=== PATIENT | male | born 1980 | race Caucasian/White ===

== ENCOUNTER 2016-07-12 16:57 | Inpatient (IN) | payer OTHER ==
[2016-07-12 18:49] VITALS: BMI 27.1
--- NOTE | 2016-07-12 21:34 | HP ---
CIWA Score - CIWA Score Nausea/Vomitin Muscle Tremors: 1-None Visible, but [place] Anxiety: 6 Agitation: 6 Paroxysmal Sweats: 4-Forehead w/Sweat Beads Orientation: 0-Oriented Tacttile Disturbances: 0-None Auditory Disturbances: 0-None Visual Disturbances: 0-None Headache: 4-Moderately Severe CIWA-Ar Total Score: 23 Admission ROS BHS - HPI Chief Complaint: WITHDRAWAL SX'S Allergies/Adverse Reactions: Allergies Allergy/AdvReac Type Severity Reaction Status Date / Time No Known Allergies Allergy Verified 09/30/15 11:50 History of Present Illness: 36 Y.O. MALE WITH ALCOHOLISM AND OPIOID/ COCAINE DEPENDENCE HERE FOR DETOX TXMENT. CL[facility] [address] [facility]IC[facility] TODAY. HE IS KNOWN TO [facility] LAST HERE 02/2016 . Exam Limitations: No Limitations - Ebola screening Have you traveled outside of the country in the last 21 days: No Have you had contact with anyone from an Ebola affected area: No Have you been sick,other than usual withdrawal symptoms: No Do you have a fever: No - Review of Systems Constitutional: Loss of Appetite, Night Sweats EENT: reports: No Symptoms Reported Respiratory: reports: No Symptoms reported Cardiac: reports: No Symptoms Reported GI: reports: Nausea, Poor Appetite, Vomiting : reports: No Symptoms Reported Musculoskeletal: reports: No Symptoms Reported Integumentary: reports: No Symptoms Reported Neuro: reports: Headache Endocrine: reports: No Symptoms Reported Hematology: reports: No Symptoms Reported Psychiatric: reports: Anxious, Depressed Other Systems: Reviewed and Negative Patient History - Patient Medical History Hx Anemia: No Hx Asthma: No Hx Chronic Obstructive Pulmonary Disease (COPD): No Hx Cancer: No Hx Cardiac Disorders: No Hx Congestive Heart Failure: No Hx Hypertension: No Hx Hypercholesterolemia: No Hx Pacemaker: No HX Cerebrovascular Accident: No Hx Seizures: No Hx Dementia: No Hx Diabetes: No Hx Gastrointestinal Disorders: No Hx Liver Disease: Yes Hx Genitourinary Disorders: No Hx Sexually Transmitted Disorders: No Hx Renal Disease (ESRD): No Hx Thyroid Disease: No Hx Human Immunodeficiency Virus (HIV): No Hx Hepatitis C: Yes (TREATED) Hx Depression: Yes (CURRENTLY ON MEDS) Hx Suicide Attempt: No (DENIES) Hx Bipolar Disorder: Yes (EFFEXOR) Hx Schizophrenia: No Other Medical History: DENIES - Patient Surgical History Past Surgical History: No Hx Neurologic Surgery: No Hx Cataract Extraction: No Hx Cardiac Surgery: No Hx Lung Surgery: No Hx Breast Surgery: No Hx Breast Biopsy: No Hx Abdominal Surgery: No Hx Appendectomy: No Hx Cholecystectomy: No Hx Genitourinary Surgery: No Hx Section: No Hx Orthopedic Surgery: No Anesthesia Reaction: No - PPD History Previous Implant?: Yes Documented Results: Negative w/proof Date: 08/22/15 Results: 0 mm PPD to be Administered?: No - Smoking Cessation Smoking history: Current every day smoker Have you smoked in the past 12 months: Yes Aproximately how many cigarettes per day: 20 Cigars Per Day: 0 Hx Chewing Tobacco Use: No Initiated information on smoking cessation: Yes 'Breaking Loose' booklet given: 07/12/16 - Substance & Tx. History Hx Alcohol Use: Yes Hx Substance Use: Yes Substance Use Type: Alcohol, Cocaine, Heroin Hx Substance Use Treatment: Yes ([facility]) - Substances Abused BEER Route: Oral Frequency: Daily Amount used: 2- 6 PACKS Age of first use: 27 Date of Last Use: 07/12/16 COAINE Route: Injection Frequency: Daily Amount used: 8 BAGS Age of first use: 17 Date of Last Use: 07/12/16 HEROIN Route: Injection Frequency: Daily Amount used: 8 BAGS Age of first use: 17 Date of Last Use: 07/12/16 Family Disease History - Family Disease History Family Disease History: Diabetes: Father (ALCOHOLIC), Mother, Heart Disease: Father, Other: Father Admission Physical Exam S - Vital Signs Vital Signs: Vital Signs - 24 hr 07/12/16 18:46 Temperature 97.6 F Pulse Rate 68 Respiratory 16 Rate Blood Pressure 120/81 - Physical General Appearance: Yes: Appropriately Dressed, Mild Distress, Intoxicated, Sweating HEENTM: Yes: Normocephalic, MISAEL, Pharynx Normal Respiratory: Yes: Chest Non-Tender, Lungs Clear, Normal Breath Sounds, No Respiratory Distress, No Accessory Muscle Use Neck: Yes: No masses,lesions,Nodules, Supple, Trachea in good position Breast: Yes: Breast Exam Deferred Cardiology: Yes: Regular Rhythm, Regular Rate, S1, S2 Abdominal: Yes: Normal Bowel Sounds, Non Tender, Flat Genitourinary: Yes: Within Normal Limits Back: Yes: Normal Inspection Musculoskeletal: Yes: full range of Motion, Gait Steady Extremities: Yes: Normal Capillary Refill, Normal Range of Motion, Non-Tender Neurological: Yes: investigation lieutenant II-XII NML intact, Fully Oriented, Alert, Motor Strength 5/5 Integumentary: Yes: Normal Color, Warm, Diaphoresis, Moist, Track Patterson Lymphatic: Yes: Within Normal Limits - Diagnostic (1) Alcohol dependence with uncomplicated withdrawal Current Visit: Yes Status: Acute (2) Opioid dependence on agonist therapy Current Visit: Yes Status: Acute (3) Cocaine dependence with withdrawal Current Visit: Yes Status: Chronic (4) Nicotine dependence Current Visit: Yes Status: Chronic Qualifiers: Nicotine product type: cigarettes Substance use status: uncomplicated Qualified Code(s): F17.210 - Nicotine dependence, cigarettes, uncomplicated Cleared for Admission [facility] - Detox or Rehab [facility] Level of Care: Medically Managed Detox Regimen/Protocol: Librium [facility] Breath Alcohol Content Breath Alcohol Content: 0.124 Urine Drug Screen - Results Urine Drug Screen Results: AV-Cocaine, OPI-Opiates, MTD-Methadone, TCA- Tricyclic Antidepress, OXY-Oxycodone
[2016-07-12] MEDS ORDERED: LOPERAMIDE HCL 2 MG CAPSULE PO PRN (21:49)
[2016-07-12] MEDS ORDERED: hydrOXYzine PAMOATE 50 MG CAPSULE (FP) PO PRN (21:49)
[2016-07-12] MEDS ORDERED: NICOTINE POLACRILEX 2 MG GUM BC PRN (21:49)
[2016-07-12] MEDS ORDERED: ACETAMINOPHEN 325 MG TABLET (FP) PO PRN (21:49)
[2016-07-12] MEDS ORDERED: IBUPROFEN 400 MG TABLET (FP) PO PRN (21:49)
[2016-07-12] MEDS ORDERED: MAG HYDROX/AL HYDROX/SIMETH 30 ML UNIT-DOSE CUP PO PRN (21:49)
[2016-07-12] MEDS ORDERED: diphenhydrAMINE HCL 50 MG CAPSULE PO PRN (21:49)
[2016-07-12] MEDS ORDERED: P-EPHED 60MG/TRIPROLIDI 2.5MG TABLET PO PRN (21:49)
[2016-07-12] MEDS ORDERED: MAGNESIUM HYDROX 2400MG/30ML ORAL SUSPENSION 30 ML CUP PO PRN (21:49)
[2016-07-12] MEDS ORDERED: MAGNESIUM CITRATE 300 ML BOTTLE PO PRN (21:49)
[2016-07-12] MEDS ORDERED: MENTHOL/PHENOL 1 EACH UD MM PRN (21:49)
[2016-07-12] MEDS ORDERED: guaiFENesin/D-METHORPHAN HB 10 ML UNIT-DOSE CUPS PO PRN (21:49)
[2016-07-12] MEDS ORDERED: chlordiazePOXIDE HCL 25 MG CAPSULE PO PRN (21:49)
[2016-07-12] MEDS: chlordiazePOXIDE HCL 25 MG CAPSULE PO SCH (23:02)
[2016-07-12] MEDS: NICOTINE 21 MG/24 HOURS TOPICAL PATCH TD SCH (23:03)
[2016-07-12] MEDS: THIAMINE HCL 100 MG TABLET (FP) PO SCH (23:04)
[2016-07-12 23:19] LABS: URINE APPEARANCE CLEAR; URINE BILIRUBIN NEGATIVE (NEGATIVE); URINE BLOOD NEGATIVE (NEGATIVE); URINE COLOR AMBER; URINE GLUCOSE (UA) NEGATIVE (NEGATIVE); URINE KETONE TRACE (NEGATIVE); URINE LEUK ESTERASE TRACE (NEGATIVE); URINE NITRITE NEGATIVE (NEGATIVE); URINE PROTEIN NEGATIVE (NEGATIVE); URINE UROBILINOGEN 4.0 E.U/dl E.U./dl (0.2-1.0)
[2016-07-12 23:23] LABS: URINE HYALINE CAST 2 /lpf; URINE MUCUS MANY; URINE RBC 1 /hpf (0-3); URINE WBC 2 /hpf (3-5)
[2016-07-13] MEDS: chlordiazePOXIDE HCL 25 MG CAPSULE PO SCH ×4 (05:50→22:33)
[2016-07-13] MEDS ORDERED: METHADONE HCL 10 MG TABLET PO ONE (08:38)
[2016-07-13] MEDS ORDERED: METHADONE 120 MG, METHADONE 30 MG PO ONE (09:04)
[2016-07-13] MEDS ORDERED: METHADONE HCL 10 MG TABLET ONE (09:57)
[2016-07-13] MEDS ORDERED: METHADONE HCL 40 MG DISPERSABLE TABLET ONE (09:58)
[2016-07-13 10:02] LABS: MCH 26.4 pg (25.7-33.7); MCHC 32.5 g/dl (32.0-35.9); MEAN CELL VOLUME 81.2 fl (80-96); MEAN PLT VOLUME 8.3 fl (7.5-11.1); PLATELET COUNT 242 K/MM3 (134-434); RDW 17.4 % (11.9-15.9)
[2016-07-13] MEDS: PRENATAL VITAMINS W/ FOLIC ACID TABLET (FP) PO SCH (10:04)
[2016-07-13] MEDS: ARIPiprazole 10 MG TABLET PO SCH (10:06)
[2016-07-13] MEDS: VENLAFAXINE HCL 75 MG E.R. CAPSULES (FP) PO SCH (10:06)
[2016-07-13] MEDS: NICOTINE 21 MG/24 HOURS TOPICAL PATCH TD SCH (10:06)
--- NOTE | 2016-07-13 10:29 | PN ---
S CIWA - CIWA Score Nausea/Vomitin-No Nausea/No Vomiting Muscle Tremors: 4-Moderate,w/Arms Extend Anxiety: 3 Agitation: 3 Paroxysmal Sweats: 3 Orientation: 0-Oriented Tacttile Disturbances: 0-None Auditory Disturbances: 0-None Visual Disturbances: 0-None Headache: 0-None Present CIWA-Ar Total Score: 13 BHS Progress Note (SOAP) Subjective: ANXIETY,TREMORS,SWEATING,INTERRUPTED SLEEP,RESTLESS. Objective: 07/13/16 10:28 Vital Signs - 8 hr 07/13/16 07/13/16 07/13/16 03:30 06:27 09:47 Temperature 97.8 F 97.4 F L Pulse Rate 59 L 57 L Respiratory 20 18 16 Rate Blood Pressure 127/87 121/71 Laboratory Tests 07/12/16 07/13/16 23:05 07:00 WBC 7.0 RBC 5.06 Hgb 13.3 D Hct 41.0 MCV 81.2 MCHC 32.5 RDW 17.4 H Plt Count 242 D MPV 8.3 D Urine Color [place] Urine Appearance Clear Urine pH 5.0 Ur Specific [place] 1.025 Urine Protein Negative Urine Glucose (UA) Negative Urine Ketones Trace H Urine Blood Negative Urine Nitrite Negative Urine Bilirubin Negative Urine Urobilinogen 4.0 e.u/dl Ur Leukocyte Esterase Trace H Urine RBC 1 Urine WBC 2 Ur Epithelial Cells Rare Hyaline Casts 2 Urine Mucus Many LABS NOTED Assessment: 07/13/16 10:29 WITHDRAWAL SX. Plan: CONTINUE DETOX
[2016-07-13 11:03] LABS: ALBUMIN 3.2 g/dl (3.4-5.0); ALK PHOS 127 U/L (45-117); ANION GAP 8 (8-16); BILIRUBIN,TOTAL 0.4 mg/dL (0.2-1.0); CALCIUM 8.6 mg/dL (8.5-10.1); CO2 28 mmol/L (21-32); CREATININE 0.7 mg/dL (0.7-1.3); GLUCOSE,RANDOM 105 mg/dL (74-106); SGOT/AST 13 U/L (15-37); SGPT/ALT 16 U/L (12-78); TOT PROT 6.5 g/dl (6.4-8.2)
--- NOTE | 2016-07-13 14:56 | CONSULT ---
[facility] Psychiatric Consult - Data Date of interview: 07/13/16 Admission source: [facility] Identifying data: This is 36 years old male with no psychiatric hospitalization history intoxicated with : Alcohol, Cocaine, Xanax, Opioids and Nicotine Substance Abuse History: - Smoking Cessation. Smoking history: Current every day smoker. Have you smoked in the past 12 months: Yes. Aproximately how many cigarettes per day: 20. Cigars Per Day: 0. Hx Chewing Tobacco Use: No. Initiated information on smoking cessation: Yes. 'Breaking Loose' booklet given : 07/12/16. - Substance & Tx. History. Hx Alcohol Use: Yes. Hx Substance Use : Yes. Substance Use Type: Alcohol, Cocaine, Heroin. Hx Substance Use Treatment: Yes ([facility] - Substances Abused. BEER. Route: Oral. Frequency : Daily. Amount used: 2- 6 PACKS. Age of first use: 27. Date of Last Use: 10/23. COAINE. Route: Injection. Frequency: Daily. Amount used: 8 BAGS. Age of first use: 17. Date of Last Use: 07/12/16. HEROIN. Route: Injection. Frequency: Daily. Amount used: 8 BAGS. Age of first use: 17. Date of Last Use: 07/12/16 Medical History: MMTP, HepC+, Obesity Psychiatric History: Patient reports to carry Bipolar Disorder, reports tasking prior to admission: Abilify 5ng po bid. Ambien 10mg po qhs. Effexor XR 75mg poqd Physical/Sexual Abuse/Trauma History: Denies Additional Comment: Abilify 5ng po bid. Ambien 10mg po qhs. Effexor XR 75mg poqd Mental Status Exam - Mental Status Exam Alert and Oriented to: Person Cognitive Function: Fair Patient Appearance: Unkempt Mood: Sad Affect: Flat Patient Behavior: Sedated Speech Pattern: Delayed Voice Loudness: Mildly Soft/Quiet Thought Process: Circumstantial Thought Disorder: Being Controlled Hallucinations: Denies Suicidal Ideation: Denies Homicidal Ideation: Denies Insight/Judgement: Fair Sleep: Difficulty falling asleep Appetite: Weight loss Muscle strength/Tone: Mild Hypertonicity Gait/Station: Shuffling Additional Comments: Abilify 5ng po bid. Ambien 10mg po qhs. Effexor XR 75mg poqd Psychiatric Findings - Problem List ([place] 1, 2,3) (1) Alcohol dependence with uncomplicated withdrawal Current Visit: Yes Status: Acute (2) Opioid dependence on agonist therapy Current Visit: Yes Status: Acute (3) Cocaine dependence with withdrawal Current Visit: Yes Status: Chronic (4) Nicotine dependence Current Visit: Yes Status: Chronic Qualifiers: Nicotine product type: cigarettes Substance use status: uncomplicated Qualified Code(s): F17.210 - Nicotine dependence, cigarettes, uncomplicated (5) Methadone maintenance therapy patient Current Visit: No Status: Acute (6) Mood disorder Current Visit: No Status: Acute (7) Substance induced mood disorder Current Visit: No Status: Acute (8) Bipolar disorder Current Visit: No Status: Chronic Qualifiers: Active/Remission status: currently active Current episode severity: unspecified (9) Obesity Current Visit: No Status: Chronic Qualifiers: Obesity type: unspecified obesity type - Initial Treatment Plan Initial Treatment Plan: Abilify 5ng po bid. Ambien 10mg po qhs. Effexor XR 75mg poqd
[2016-07-13] MEDS: THIAMINE HCL 100 MG TABLET (FP) PO SCH (22:32)
[2016-07-13] MEDS: ZOLPIDEM TARTRATE 10 MG TABLET (PARK CARE ONLY) PO PRN (22:34)
[2016-07-14] MEDS ORDERED: METHADONE HCL 10 MG TABLET ONE (05:34)
[2016-07-14] MEDS ORDERED: METHADONE HCL 40 MG DISPERSABLE TABLET ONE (05:34)
[2016-07-14] MEDS: chlordiazePOXIDE HCL 25 MG CAPSULE PO SCH ×3 (05:55→17:19)
[2016-07-14] MEDS: METHADONE 120 MG, METHADONE 30 MG PO SCH (05:56)
[2016-07-14] MEDS ORDERED: METHADONE HCL 10 MG TABLET PO SCH (06:00)
[2016-07-14] MEDS: PRENATAL VITAMINS W/ FOLIC ACID TABLET (FP) PO SCH (10:14)
[2016-07-14] MEDS: NICOTINE 21 MG/24 HOURS TOPICAL PATCH TD SCH (10:14)
[2016-07-14] MEDS: ARIPiprazole 10 MG TABLET PO SCH (10:14)
[2016-07-14] MEDS: VENLAFAXINE HCL 75 MG E.R. CAPSULES (FP) PO SCH (10:14)
--- NOTE | 2016-07-14 13:04 | PN ---
S CIWA - CIWA Score Nausea/Vomitin-No Nausea/No Vomiting Muscle Tremors: 4-Moderate,w/Arms Extend Anxiety: 4-Mod. Anxious/Guarded Agitation: 3 Paroxysmal Sweats: 3 Orientation: 0-Oriented Tacttile Disturbances: 0-None Auditory Disturbances: 0-None Visual Disturbances: 0-None Headache: 0-None Present CIWA-Ar Total Score: 14 BHS Progress Note (SOAP) Subjective: ANXIETY,TREMORS,SWEATING,INTERRUPTED SLEEP,RESTLESS Objective: 07/14/16 13:03 Vital Signs - 8 hr 07/14/16 07/14/16 06:11 09:36 Temperature 97.5 F L 96.2 F L Pulse Rate 52 L 55 L Respiratory 18 18 Rate Blood Pressure 118/69 119/76 Laboratory Tests 07/12/16 07/13/16 07/13/16 23:05 07:00 07:00 WBC 7.0 RBC 5.06 Hgb 13.3 D Hct 41.0 MCV 81.2 MCHC 32.5 RDW 17.4 H Plt Count 242 D MPV 8.3 D Sodium 141 Potassium 4.0 Chloride 105 Carbon Dioxide 28 Anion Gap 8 BUN 11 Creatinine 0.7 Creat Clearance w eGFR > 60 Random Glucose 105 Calcium 8.6 Total Bilirubin 0.4 D AST 13 L D ALT 16 D Alkaline Phosphatase 127 H Total Protein 6.5 D Albumin 3.2 L D Urine Color [place] Urine Appearance Clear Urine pH 5.0 Ur Specific [place] 1.025 Urine Protein Negative Urine Glucose (UA) Negative Urine Ketones Trace H Urine Blood Negative Urine Nitrite Negative Urine Bilirubin Negative Urine Urobilinogen 4.0 e.u/dl Ur Leukocyte Esterase Trace H Urine RBC 1 Urine WBC 2 Ur Epithelial Cells Rare Hyaline Casts 2 Urine Mucus Many RPR Titer 07/13/16 07:00 WBC RBC Hgb Hct MCV MCHC RDW Plt Count MPV Sodium Potassium Chloride Carbon Dioxide Anion Gap BUN Creatinine Creat Clearance w eGFR Random Glucose Calcium Total Bilirubin AST ALT Alkaline Phosphatase Total Protein Albumin Urine Color Urine Appearance Urine pH Ur Specific [place] Urine Protein Urine Glucose (UA) Urine Ketones Urine Blood Urine Nitrite Urine Bilirubin Urine Urobilinogen Ur Leukocyte Esterase Urine RBC Urine WBC Ur Epithelial Cells Hyaline Casts Urine Mucus RPR Titer Nonreactive LABS NOTED Assessment: 07/14/16 13:04 WITHDRAWAL SX. Plan: CONTINUE DETOX
[2016-07-14] MEDS: ZOLPIDEM TARTRATE 10 MG TABLET (PARK CARE ONLY) PO PRN (22:21)
[2016-07-14] MEDS: THIAMINE HCL 100 MG TABLET (FP) PO SCH (22:21)
[2016-07-14] MEDS: chlordiazePOXIDE 5 MG CAPSULE PO SCH (22:21)
[2016-07-15] MEDS: chlordiazePOXIDE 5 MG CAPSULE PO SCH ×3 (05:43→17:28)
[2016-07-15] MEDS ORDERED: METHADONE HCL 40 MG DISPERSABLE TABLET ONE (05:45)
[2016-07-15] MEDS ORDERED: METHADONE HCL 10 MG TABLET ONE (05:45)
[2016-07-15] MEDS: METHADONE 120 MG, METHADONE 30 MG PO SCH (05:46)
[2016-07-15] MEDS: ARIPiprazole 10 MG TABLET PO SCH (10:18)
[2016-07-15] MEDS: NICOTINE 21 MG/24 HOURS TOPICAL PATCH TD SCH (10:18)
[2016-07-15] MEDS: VENLAFAXINE HCL 75 MG E.R. CAPSULES (FP) PO SCH (10:18)
[2016-07-15] MEDS: PRENATAL VITAMINS W/ FOLIC ACID TABLET (FP) PO SCH (10:18)
[2016-07-15] MEDS: THIAMINE HCL 100 MG TABLET (FP) PO SCH (22:19)
[2016-07-15] MEDS: chlordiazePOXIDE HCL 10 MG CAPSULE PO SCH (22:20)
[2016-07-15] MEDS: ZOLPIDEM TARTRATE 10 MG TABLET (PARK CARE ONLY) PO PRN (22:21)
--- NOTE | 2016-07-15 23:26 | PN ---
[id number] Vital Signs - 8 hr 07/15/16 20:08 Temperature 96.2 F L Pulse Rate 62 Respiratory 18 Rate Blood Pressure 117/66 Assessment: 07/15/16 23:26 WITHDRAWAL SX. Plan: CONTINUE DETOX
[2016-07-16] MEDS ORDERED: METHADONE HCL 40 MG DISPERSABLE TABLET ONE (01:19)
[2016-07-16] MEDS ORDERED: METHADONE HCL 10 MG TABLET ONE (01:19)
[2016-07-16] MEDS: chlordiazePOXIDE HCL 10 MG CAPSULE PO SCH ×3 (05:15→17:29)
[2016-07-16] MEDS: METHADONE 120 MG, METHADONE 30 MG PO SCH (05:15)
[2016-07-16] MEDS: ARIPiprazole 10 MG TABLET PO SCH (10:33)
[2016-07-16] MEDS: PRENATAL VITAMINS W/ FOLIC ACID TABLET (FP) PO SCH (10:33)
[2016-07-16] MEDS: VENLAFAXINE HCL 75 MG E.R. CAPSULES (FP) PO SCH (10:33)
[2016-07-16] MEDS: NICOTINE 21 MG/24 HOURS TOPICAL PATCH TD SCH (10:34)
--- NOTE | 2016-07-16 15:52 | PN ---
BHS Progress Note (SOAP) Subjective: Anxiety, restless, sweating Objective: 07/16/16 15:50 Last Vital Signs Temp Pulse Resp BP Pulse Ox 96 F L 74 20 115/63 07/16/16 13:49 07/16/16 13:49 07/16/16 13:49 07/16/16 13:49 Laboratory Tests 07/12/16 07/13/16 07/13/16 23:05 07:00 07:00 WBC 7.0 RBC 5.06 Hgb 13.3 D Hct 41.0 MCV 81.2 MCHC 32.5 RDW 17.4 H Plt Count 242 D MPV 8.3 D Sodium 141 Potassium 4.0 Chloride 105 Carbon Dioxide 28 Anion Gap 8 BUN 11 Creatinine 0.7 Creat Clearance w eGFR > 60 Random Glucose 105 Calcium 8.6 Total Bilirubin 0.4 D AST 13 L D ALT 16 D Alkaline Phosphatase 127 H Total Protein 6.5 D Albumin 3.2 L D Urine Color [place] Urine Appearance Clear Urine pH 5.0 Ur Specific [place] 1.025 Urine Protein Negative Urine Glucose (UA) Negative Urine Ketones Trace H Urine Blood Negative Urine Nitrite Negative Urine Bilirubin Negative Urine Urobilinogen 4.0 e.u/dl Ur Leukocyte Esterase Trace H Urine RBC 1 Urine WBC 2 Ur Epithelial Cells Rare Hyaline Casts 2 Urine Mucus Many RPR Titer 07/13/16 07:00 WBC RBC Hgb Hct MCV MCHC RDW Plt Count MPV Sodium Potassium Chloride Carbon Dioxide Anion Gap BUN Creatinine Creat Clearance w eGFR Random Glucose Calcium Total Bilirubin AST ALT Alkaline Phosphatase Total Protein Albumin Urine Color Urine Appearance Urine pH Ur Specific [place] Urine Protein Urine Glucose (UA) Urine Ketones Urine Blood Urine Nitrite Urine Bilirubin Urine Urobilinogen Ur Leukocyte Esterase Urine RBC Urine WBC Ur Epithelial Cells Hyaline Casts Urine Mucus RPR Titer Nonreactive Labs noted Assessment: 07/16/16 15:51 Withdrawal symptoms Plan: Continue detox
[2016-07-16] MEDS: THIAMINE HCL 100 MG TABLET (FP) PO SCH (22:10)
[2016-07-17] MEDS ORDERED: METHADONE HCL 40 MG DISPERSABLE TABLET ONE (04:15)
[2016-07-17] MEDS ORDERED: METHADONE HCL 10 MG TABLET ONE (04:15)
[2016-07-17] MEDS: METHADONE 120 MG, METHADONE 30 MG PO SCH (05:23)
--- NOTE | 2016-07-17 09:04 | PN ---
S Progress Note (SOAP) Subjective: alert,no complaint Objective: 07/17/16 09:01 alert,no compalint 07/17/16 09:02 Vital Signs Temperature 98.1 F 07/17/16 06:15 Pulse Rate 67 07/17/16 06:15 Respiratory Rate 18 07/17/16 06:15 Blood Pressure 122/72 07/17/16 06:15 O2 Sat by Pulse Oximetry (%) Assessment: 07/17/16 09:02 detox completed,no withdrawal symptom Plan: discharge today,follow ip with after care program as arrangement
--- NOTE | 2016-07-17 09:10 | DS ---
[facility] Detox Discharge Summary Admission Date: 07/12/16 Discharge Date: 07/17/16 - History Present History: Alcohol Dependence, Cocaine Dependence, Opioid Dependence Additional Comments: follow up with after care program as arrangement Pertinent Past History: hepatits c obesity - Physical Exam Results Vital Signs: Vital Signs Temperature 98.1 F 07/17/16 06:15 Pulse Rate 67 07/17/16 06:15 Respiratory Rate 18 07/17/16 06:15 Blood Pressure 122/72 07/17/16 06:15 O2 Sat by Pulse Oximetry (%) Pertinent Admission Physical Exam Findings: withdrawal symptom - Treatment Hospital Course: Detox Protocol Followed, Detoxed Safely, Responded well, Discharged Condition Good - Medication Discharge Medications: Ambulatory Orders Zolpidem Tartrate [Ambien] 10 mg PO HS 09/30/15 Aripiprazole [Abilify -] 10 mg PO DAILY #30 tablet 10/01/15 Venlafaxine HCl ER [Effexor Xr -] 75 mg PO DAILY #30 cap.er.24h 10/01/15 Thiamine HCl [Vitamin B1 -] 100 mg PO HS #30 tablet 10/04/15 Aripiprazole [Abilify -] 10 mg PO DAILY #30 tablet 07/13/16 Venlafaxine HCl ER [Effexor Xr -] 75 mg PO DAILY #30 cap.er.24h 07/13/16 Zolpidem Tartrate [Ambien] 10 mg PO HS PRN #14 tablet MDD 10 07/13/16 - AMA Did Patient Leave Against Medical Advice: No
[2016-07-17 10:11] VITALS: BP 130/81; PULSE 79; TEMP 98
--- NOTE | 2016-07-19 09:43 | EKG ---
Test Reason : Blood Pressure : / mmHG Vent. Rate : 073 BPM Atrial Rate : 073 BPM P-R Int : 120 ms QRS Dur : 086 ms QT Int : 322 ms P-R-T Axes : 040 069 013 degrees QTc Int : 354 ms NORMAL SINUS RHYTHM NONSPECIFIC T WAVE ABNORMALITY ABNORMAL ECG NO PREVIOUS ECGS AVAILABLE Confirmed by PERRY ABDALLA, ADEEL ([id number]) on 07/19/2016 9:42:44 AM Referred By: Confirmed By:ADEEL AMADOR MD
== END 2016-07-17 10:42 | disposition home or self-care (01) | DRG 773 ==
LOC: YASAS 16:57 → Y3N 20:52
PROVIDERS: ADMIT Internal Medicine; ATTEND Internal Medicine
PROC: HZ2ZZZZ Detoxification Services for Substance Abuse Treatment (ICD-10-PCS; principal; 2016-07-12)
DX: F10.230 Alcohol dependence with withdrawal, uncomplicated (principal); F11.20 Opioid dependence, uncomplicated; F14.23 Cocaine dependence with withdrawal; F17.210 Nicotine dependence, cigarettes, uncomplicated; F19.24 Other psychoactive substance dependence with psychoactive substance-induced mood disorder; F39 Unspecified mood [affective] disorder; F31.9 Bipolar disorder, unspecified; B18.2 Chronic viral hepatitis C; E66.9 Obesity, unspecified; Z68.27 Body mass index [BMI] 27.0-27.9, adult; K76.9 Liver disease, unspecified
CPT/HCPCS: 36415; 80053; 81003; 81015; 85027; 86593; 93005; 93010

== ENCOUNTER 2016-09-04 13:26 | Inpatient (IN) | payer OTHER ==
[2016-09-04 14:40] VITALS: BMI 29.4
--- NOTE | 2016-09-04 15:25 | HP ---
CIWA Score - CIWA Score Nausea/Vomitin Muscle Tremors: 2 Anxiety: 3 Agitation: 3 Paroxysmal Sweats: 3 Orientation: 0-Oriented Tacttile Disturbances: 1-Very Mild Itch/Numbness Auditory Disturbances: 0-None Visual Disturbances: 0-None Headache: 2-Mild CIWA-Ar Total Score: 17 Admission ROS BHS - HPI Chief Complaint: i NEED HELP TO STOP USING HEROIN AND ALCOHOL. Allergies/Adverse Reactions: Allergies Allergy/AdvReac Type Severity Reaction Status Date / Time No Known Allergies Allergy Verified 09/04/16 15:22 History of Present Illness: 36 Y/O M PT WITH H/O MMTP STILL USING HEROIN , COCAINE AND ALCOHOLISM Exam Limitations: No Limitations - Ebola screening Have you traveled outside of the country in the last 21 days: No Have you had contact with anyone from an Ebola affected area: No Have you been sick,other than usual withdrawal symptoms: No Do you have a fever: No - Review of Systems Constitutional: Malaise, Night Sweats, Changes in sleep, Unintentional Wgt. Loss (10 LBS X 1 MONTH) EENT: reports: Nose Congestion Respiratory: reports: No Symptoms reported Cardiac: reports: No Symptoms Reported GI: reports: Nausea, Abdominal cramping : reports: No Symptoms Reported Musculoskeletal: reports: Joint Pain, Muscle Pain Integumentary: reports: No Symptoms Reported Endocrine: reports: No Symptoms Reported Hematology: reports: No Symptoms Reported Psychiatric: reports: Agitated, Anxious, Depressed Other Systems: Reviewed and Negative Patient History - Patient Medical History Hx Anemia: No Hx Asthma: No Hx Chronic Obstructive Pulmonary Disease (COPD): No Hx Cancer: No Hx Cardiac Disorders: No Hx Congestive Heart Failure: No Hx Hypertension: No Hx Hypercholesterolemia: No Hx Pacemaker: No HX Cerebrovascular Accident: No Hx Seizures: No Hx Dementia: No Hx Diabetes: No Hx Gastrointestinal Disorders: No Hx Liver Disease: Yes Hx Genitourinary Disorders: No Hx Sexually Transmitted Disorders: No Hx Renal Disease (ESRD): No Hx Thyroid Disease: No Hx Human Immunodeficiency Virus (HIV): No Hx Hepatitis C: Yes (TREATED) Hx Depression: Yes Hx Suicide Attempt: No Hx Bipolar Disorder: Yes (EFFEXOR) Hx Schizophrenia: No - Patient Surgical History Past Surgical History: No Hx Neurologic Surgery: No Hx Cataract Extraction: No Hx Cardiac Surgery: No Hx Lung Surgery: No Hx Breast Surgery: No Hx Breast Biopsy: No Hx Abdominal Surgery: No Hx Appendectomy: No Hx Cholecystectomy: No Hx Genitourinary Surgery: No Hx Section: No Hx Orthopedic Surgery: No Anesthesia Reaction: No - PPD History Date: 08/22/15 Results: 0 mm - Reproductive History Patient is a Female of Child Bearing Age (11 -55 yrs old): No - Smoking Cessation Smoking history: Current every day smoker Have you smoked in the past 12 months: Yes Aproximately how many cigarettes per day: 20 Cigars Per Day: 0 Hx Chewing Tobacco Use: No Initiated information on smoking cessation: Yes 'Breaking Loose' booklet given: 09/04/16 - Substance & Tx. History Hx Alcohol Use: Yes Hx Substance Use: Yes Substance Use Type: Alcohol, Cocaine, Heroin Hx Substance Use Treatment: Yes - Substances Abused Alcohol Route: Oral Frequency: Daily Amount used: BEER 2-3 SIX PKS /D Age of first use: 23 Date of Last Use: 09/04/16 Cocaine Route: Injection Frequency: Daily Amount used: 10 BAGS Age of first use: 17 Date of Last Use: 09/04/16 Heroin Route: Injection Frequency: Daily Amount used: 10 BAGS Age of first use: 17 Date of Last Use: 09/04/16 Family Disease History - Family Disease History Family Disease History: Diabetes: Father (ALCOHOLIC), Mother, Heart Disease: Father, Other: Father Admission Physical Exam S - Vital Signs Vital Signs: Vital Signs - 24 hr 09/04/16 14:37 Temperature 98 F Pulse Rate 68 Respiratory 20 Rate Blood Pressure 112/72 36 Y/O M PT AOX3, AMBULATING , COOPERATIVE WITH EXAM. - Physical General Appearance: Yes: No Apparent Distress, Appropriately Dressed, Tremorous , Irritable, Sweating, Anxious HEENTM: Yes: EOMI, Hearing grossly Normal, Normal Voice, MISAEL Respiratory: Yes: Chest Non-Tender, Lungs Clear, Normal Breath Sounds, No Respiratory Distress Neck: Yes: Supple Breast: Yes: Within Normal Limits Cardiology: Yes: Regular Rhythm, Regular Rate, S1, S2 Abdominal: Yes: Non Tender, Flat, Soft, Increased Bowel Sounds Genitourinary: Yes: Within Normal Limits Back: Yes: CVA Tenderness Musculoskeletal: Yes: Back pain, Muscle Pain Neurological: Yes: papier mache' molder II-XII NML intact, Fully Oriented, Alert, Motor Strength 5/5 Integumentary: Yes: Moist, Track [place] Lymphatic: Yes: Within Normal Limits - Addiitonal Findings: ARJUN ARMS, LOWER EXTREMITIES - Diagnostic (1) Alcohol dependence with uncomplicated withdrawal Current Visit: Yes Status: Chronic (2) Methadone maintenance therapy patient Current Visit: Yes Status: Chronic (3) Substance induced mood disorder Current Visit: Yes Status: Chronic (4) Uncomplicated sedative, hypnotic, or anxiolytic withdrawal Current Visit: Yes Status: Chronic (5) Bipolar disorder Current Visit: Yes Status: Chronic Qualifiers: Active/Remission status: currently active Current episode severity: unspecified (6) Cocaine dependence with withdrawal Current Visit: Yes Status: Chronic (7) Hepatitis C Current Visit: Yes Status: Chronic Qualifiers: Viral hepatitis chronicity: chronic Hepatic coma status: without hepatic coma Qualified Code(s): B18.2 - Chronic viral hepatitis C (8) Nicotine dependence Current Visit: Yes Status: Chronic Qualifiers: Nicotine product type: cigarettes Substance use status: uncomplicated Qualified Code(s): F17.210 - Nicotine dependence, cigarettes, uncomplicated Cleared for Admission S - Detox or Rehab [facility] Level of Care: Medically Managed Detox Regimen/Protocol: Librium [facility] Breath Alcohol Content Breath Alcohol Content: 0.037 Urine Drug Screen - Results Drug Screen Negative: No Urine Drug Screen Results: AV-Cocaine, OPI-Opiates, MTD-Methadone
[2016-09-04] MEDS ORDERED: guaiFENesin/D-METHORPHAN HB 10 ML UNIT-DOSE CUPS PO PRN (15:42)
[2016-09-04] MEDS ORDERED: P-EPHED 60MG/TRIPROLIDI 2.5MG TABLET PO PRN (15:42)
[2016-09-04] MEDS ORDERED: LOPERAMIDE HCL 2 MG CAPSULE PO PRN (15:42)
[2016-09-04] MEDS ORDERED: MAGNESIUM CITRATE 300 ML BOTTLE PO PRN (15:42)
[2016-09-04] MEDS ORDERED: chlordiazePOXIDE HCL 25 MG CAPSULE PO PRN (15:42)
[2016-09-04] MEDS ORDERED: MAGNESIUM HYDROX 2400MG/30ML ORAL SUSPENSION 30 ML CUP PO PRN (15:42)
[2016-09-04] MEDS ORDERED: MENTHOL/PHENOL 1 EACH UD MM PRN (15:42)
[2016-09-04] MEDS ORDERED: MAG HYDROX/AL HYDROX/SIMETH 30 ML UNIT-DOSE CUP PO PRN (15:42)
[2016-09-04] MEDS ORDERED: NICOTINE POLACRILEX 4 MG GUM BUC PRN (15:45)
[2016-09-04] MEDS: chlordiazePOXIDE HCL 25 MG CAPSULE PO SCH ×2 (17:12→22:11)
[2016-09-04] MEDS: THIAMINE HCL 100 MG TABLET (FP) PO SCH (22:11)
[2016-09-04] MEDS: ACETAMINOPHEN 325 MG TABLET (FP) PO PRN (22:11)
[2016-09-04] MEDS: diphenhydrAMINE HCL 50 MG CAPSULE PO PRN (22:12)
[2016-09-04 23:11] LABS: URINE APPEARANCE CLEAR; URINE BILIRUBIN NEGATIVE (NEGATIVE); URINE BLOOD NEGATIVE (NEGATIVE); URINE COLOR LTYELLOW; URINE GLUCOSE (UA) NEGATIVE (NEGATIVE); URINE KETONE NEGATIVE (NEGATIVE); URINE LEUK ESTERASE NEGATIVE (NEGATIVE); URINE NITRITE NEGATIVE (NEGATIVE); URINE PROTEIN NEGATIVE (NEGATIVE); URINE UROBILINOGEN NEGATIVE E.U./dl (0.2-1.0)
[2016-09-05] MEDS ORDERED: METHADONE HCL 10 MG TABLET ONE (04:08)
[2016-09-05] MEDS ORDERED: METHADONE HCL 40 MG DISPERSABLE TABLET ONE (04:09)
[2016-09-05] MEDS: METHADONE 120 MG, METHADONE 30 MG PO SCH (05:45)
[2016-09-05] MEDS: chlordiazePOXIDE HCL 25 MG CAPSULE PO SCH ×4 (05:45→22:18)
[2016-09-05] MEDS ORDERED: METHADONE HCL 10 MG TABLET PO SCH (06:00)
[2016-09-05 09:56] LABS: MCH 26.8 pg (25.7-33.7); MCHC 32.3 g/dl (32.0-35.9); MEAN CELL VOLUME 83.1 fl (80-96); MEAN PLT VOLUME 9.2 fl (7.5-11.1); PLATELET COUNT 222 K/MM3 (134-434); RDW 17.6 % (11.9-15.9); WHITE BLOOD COUNT 5.9 K/mm3 (4.0-10.0)
--- NOTE | 2016-09-05 10:02 | PN ---
S CIWA - CIWA Score Nausea/Vomitin-No Nausea/No Vomiting Muscle Tremors: 4-Moderate,w/Arms Extend Anxiety: 3 Agitation: 4-Moderately Restless Paroxysmal Sweats: 3 Orientation: 0-Oriented Tacttile Disturbances: 0-None Auditory Disturbances: 0-None Visual Disturbances: 0-None Headache: 1-Very Mild CIWA-Ar Total Score: 15 BHS Progress Note (SOAP) Subjective: constipation irritable agitation headache body aches sweats Objective: 09/05/16 10:06 Vital Signs Temperature 97.9 F 09/05/16 06:26 Pulse Rate 65 09/05/16 06:26 Respiratory Rate 16 09/05/16 06:26 Blood Pressure 130/83 09/05/16 06:26 O2 Sat by Pulse Oximetry (%) Laboratory Tests 09/04/16 23:00 Urine Color [place] Urine Appearance Clear Urine pH 6.0 Ur Specific [place] 1.012 Urine Protein Negative Urine Glucose (UA) Negative Urine Ketones Negative Urine Blood Negative Urine Nitrite Negative Urine Bilirubin Negative Urine Urobilinogen Negative Ur Leukocyte Esterase Negative labs pending awake/alert ambulating no acute distress Assessment: 09/05/16 10:06 withdrawal sx Plan: continue detox increase fluids citroma x 1 now motrin/tylenol prn labs pending
[2016-09-05] MEDS: PRENATAL VITAMINS W/ FOLIC ACID TABLET (FP) PO SCH (10:20)
[2016-09-05] MEDS: NICOTINE 21 MG/24 HOURS TOPICAL PATCH TD SCH (10:20)
[2016-09-05] MEDS: IBUPROFEN 400 MG TABLET (FP) PO PRN (10:22)
[2016-09-05 10:31] LABS: ALBUMIN 3.9 g/dl (3.4-5.0); ALK PHOS 123 U/L (45-117); ANION GAP 6 (8-16); BILIRUBIN,TOTAL 0.4 mg/dL (0.2-1.0); CALCIUM 8.8 mg/dL (8.5-10.1); CO2 30 mmol/L (21-32); CREATININE 0.7 mg/dL (0.7-1.3); GLUCOSE,RANDOM 111 mg/dL (74-106); SGOT/AST 15 U/L (15-37); SGPT/ALT 20 U/L (12-78); TOT PROT 7.3 g/dl (6.4-8.2)
--- NOTE | 2016-09-05 15:12 | CONSULT ---
[facility] Psychiatric Consult - Data Date of interview: 09/05/16 Admission source: [facility] Identifying data: [facility] on for heroin,alcohol and cocaine dependence.Patient is ,a father of two,domiciled,unemployed and supported on welfare. Substance Abuse History: - Smoking Cessation. Smoking history: Current every day smoker. Have you smoked in the past 12 months: Yes. Aproximately how many cigarettes per day: 20. Cigars Per Day: 0. Hx Chewing Tobacco Use: No. Initiated information on smoking cessation: Yes. 'Breaking Loose' booklet given : 09/04/16. - Substance & Tx. History. Hx Alcohol Use: Yes. Hx Substance Use : Yes. Substance Use Type: Alcohol, Cocaine, Heroin. Hx Substance Use Treatment: Yes. - Substances Abused. Alcohol. Route: Oral. Frequency: Daily. Amount used: BEER 2-3 SIX PKS /D. Age of first use: 23. Date of Last Use: 09/04/16. Cocaine. Route: Injection. Frequency: Daily. Amount used: 10 BAGS. Age of first use: 17. Date of Last Use: 09/04/16. Heroin. Route : Injection. Frequency: Daily. Amount used: 10 BAGS. Age of first use: 17. Date of Last Use: 09/04/16. Confirmed by the patient in my interview. Medical History: No report of medical problems. Psychiatric History: PAtient admits to a history of two [facility] [place] [facility] [facility].Diagnosed with Bipolar Disorder and MDD.Mr Armendariz informs that he gets his OPD care at the [facility] where he is managed by Dr Derrick Fuentes on a regimen of effexor,ambien,wellbutrin and klonopin.Patient denies history of suicide attempts.Patient is currently on methadone maintenance (150 mg/day). Physical/Sexual Abuse/Trauma History: Patient denies. Additional Comment: Urine Drug Screen Results: AV-Cocaine, OPI-Opiates, MTD- Methadone.Noted. Mental Status Exam - Mental Status Exam Alert and Oriented to: Time, Place, Person Cognitive Function: Good Patient Appearance: Well Groomed (overweight) Mood: Nervous, Withdrawn, Anxious Affect: Mood Congruent Patient Behavior: Fatigued, Appropriate, Cooperative Speech Pattern: Clear Voice Loudness: Normal Thought Process: Goal Oriented Thought Disorder: Not Present Hallucinations: Denies Suicidal Ideation: Denies Homicidal Ideation: Denies Insight/Judgement: Poor Sleep: Poorly, Difficulty falling asleep Appetite: Good Muscle strength/Tone: Normal Gait/Station: Normal Psychiatric Findings - Problem List ([place] 1, 2,3) (1) Alcohol dependence with uncomplicated withdrawal Current Visit: Yes Status: Acute (2) Cocaine dependence with withdrawal Current Visit: Yes Status: Acute (3) Uncomplicated sedative, hypnotic, or anxiolytic withdrawal Current Visit: Yes Status: Acute (4) Nicotine dependence Current Visit: Yes Status: Acute Qualifiers: Nicotine product type: cigarettes Substance use status: uncomplicated Qualified Code(s): F17.210 - Nicotine dependence, cigarettes, uncomplicated (5) Opioid dependence on agonist therapy Current Visit: Yes Status: Acute (6) Substance induced mood disorder Current Visit: Yes Status: Acute (7) Bipolar disorder Current Visit: Yes Status: Chronic Qualifiers: Active/Remission status: currently active Current episode severity: unspecified Comment: History. (8) Hepatitis C Current Visit: Yes Status: Chronic Qualifiers: Viral hepatitis chronicity: chronic Hepatic coma status: without hepatic coma Qualified Code(s): B18.2 - Chronic viral hepatitis C (9) Obesity Current Visit: Yes Status: Chronic Qualifiers: Obesity type: unspecified obesity type - Initial Treatment Plan Initial Treatment Plan: Psychoeducation.Detoxification in progress.Medications : effexor XR 75 mg po daily + abilify 10 mg po hs + zolpidem 10 mg po hs prn.Side effects/benefits of these drugs discussed with the patient.He agrees with this paln of care.Medications verified by review of review of recent () pharmacy claims @ [facility]Observation.
--- NOTE | 2016-09-05 15:35 | EKG ---
Test Reason : Blood Pressure : / mmHG Vent. Rate : 067 BPM Atrial Rate : 067 BPM P-R Int : 120 ms QRS Dur : 082 ms QT Int : 396 ms P-R-T Axes : 037 064 025 degrees QTc Int : 418 ms NORMAL SINUS RHYTHM NORMAL ECG WHEN COMPARED WITH ECG OF 12-JUL-2016 23:12, T WAVE VARIATION Confirmed by HIMA STRANGE MD ([id number]) on 09/05/2016 3:35:01 PM Referred By: Confirmed By:HIMA STRANGE MD
[2016-09-05] MEDS: ARIPiprazole 10 MG TABLET PO SCH (22:18)
[2016-09-05] MEDS: THIAMINE HCL 100 MG TABLET (FP) PO SCH (22:18)
[2016-09-05] MEDS: diphenhydrAMINE HCL 50 MG CAPSULE PO PRN (22:19)
[2016-09-06] MEDS ORDERED: METHADONE HCL 40 MG DISPERSABLE TABLET ONE (04:34)
[2016-09-06] MEDS ORDERED: METHADONE HCL 10 MG TABLET ONE (04:34)
[2016-09-06] MEDS: chlordiazePOXIDE HCL 25 MG CAPSULE PO SCH ×2 (05:43→10:33)
[2016-09-06] MEDS: METHADONE 120 MG, METHADONE 30 MG PO SCH (05:43)
[2016-09-06] MEDS: PRENATAL VITAMINS W/ FOLIC ACID TABLET (FP) PO SCH (10:32)
[2016-09-06] MEDS: NICOTINE 21 MG/24 HOURS TOPICAL PATCH TD SCH (10:33)
[2016-09-06] MEDS: VENLAFAXINE HCL 75 MG E.R. CAPSULES (FP) PO SCH (10:33)
[2016-09-06] MEDS: IBUPROFEN 400 MG TABLET (FP) PO PRN (10:34)
--- NOTE | 2016-09-06 12:26 | PN ---
BHS COWS - Scale Resting Pulse: 0= FL 80 or Below Sweatin= Chills/Flushing Restless Observation: 1= Difficult to Sit Still Pupil Size: 1= Pupils >than Normal Bone or Joint Aches: 1= Mild Discomfort Runny Nose/ Eye Tearin= Nasal Congestion GI Upset > 30mins: 1= Stomach Cramp Tremor Observation of Outstretched Hands: 1= Tremor Fisher, Not Seen Yawning Observation: 0= None Anxiety or Irritability: 1=Feels Anxious/Irritable Goose Flesh Skin: 0=Smooth Skin COWS Score: 8 BHS Progress Note (SOAP) Subjective: interrupted sleep sweats, diarrhea Objective: 09/06/16 12:25 Vital Signs Temperature 98.2 F 09/06/16 10:12 Pulse Rate 64 09/06/16 10:12 Respiratory Rate 18 09/06/16 10:12 Blood Pressure 121/70 09/06/16 10:12 O2 Sat by Pulse Oximetry (%) Laboratory Tests 09/04/16 09/04/16 09/05/16 08:00 23:00 06:00 WBC 5.9 RBC 5.28 Hgb 14.2 Hct 43.9 MCV 83.1 MCHC 32.3 RDW 17.6 H Plt Count 222 MPV 9.2 D Sodium Potassium Chloride Carbon Dioxide Anion Gap BUN Creatinine Creat Clearance w eGFR Random Glucose Calcium Total Bilirubin AST ALT Alkaline Phosphatase Total Protein Albumin Urine Color Ltyellow Urine Appearance Clear Urine pH 6.0 Ur Specific [place] 1.012 Urine Protein Negative Urine Glucose (UA) Negative Urine Ketones Negative Urine Blood Negative Urine Nitrite Negative Urine Bilirubin Negative Urine Urobilinogen Negative Ur Leukocyte Esterase Negative RPR Titer Hepatitis C Antibody >11.0 H 09/05/16 09/05/16 06:00 06:00 WBC RBC Hgb Hct MCV MCHC RDW Plt Count MPV Sodium 139 Potassium 4.1 Chloride 103 Carbon Dioxide 30 Anion Gap 6 L BUN 7 D Creatinine 0.7 Creat Clearance w eGFR > 60 Random Glucose 111 H Calcium 8.8 Total Bilirubin 0.4 AST 15 ALT 20 D Alkaline Phosphatase 123 H Total Protein 7.3 Albumin 3.9 D Urine Color Urine Appearance Urine pH Ur Specific [place] Urine Protein Urine Glucose (UA) Urine Ketones Urine Blood Urine Nitrite Urine Bilirubin Urine Urobilinogen Ur Leukocyte Esterase RPR Titer Nonreactive Hepatitis C Antibody pt aox3 in nad ambulating 09/07/16 10:42 Assessment: 09/06/16 12:25 withdrawal sx's 09/07/16 10:42 Plan: cont. detox increase fluds imodium prn
[2016-09-06] MEDS: chlordiazePOXIDE 5 MG CAPSULE PO SCH ×2 (17:10→22:24)
[2016-09-06] MEDS: ACETAMINOPHEN 325 MG TABLET (FP) PO PRN ×2 (17:11→22:26)
[2016-09-06] MEDS: diphenhydrAMINE HCL 50 MG CAPSULE PO PRN (22:24)
[2016-09-06] MEDS: ARIPiprazole 10 MG TABLET PO SCH (22:24)
[2016-09-06] MEDS: THIAMINE HCL 100 MG TABLET (FP) PO SCH (22:24)
[2016-09-07] MEDS ORDERED: METHADONE HCL 40 MG DISPERSABLE TABLET ONE (02:26)
[2016-09-07] MEDS ORDERED: METHADONE HCL 10 MG TABLET ONE (02:26)
[2016-09-07] MEDS: chlordiazePOXIDE 5 MG CAPSULE PO SCH ×2 (05:52→10:36)
[2016-09-07] MEDS: METHADONE 120 MG, METHADONE 30 MG PO SCH (05:52)
[2016-09-07] MEDS: ACETAMINOPHEN 325 MG TABLET (FP) PO PRN (10:36)
[2016-09-07] MEDS: PRENATAL VITAMINS W/ FOLIC ACID TABLET (FP) PO SCH (10:36)
[2016-09-07] MEDS: VENLAFAXINE HCL 75 MG E.R. CAPSULES (FP) PO SCH (10:36)
[2016-09-07] MEDS: NICOTINE 21 MG/24 HOURS TOPICAL PATCH TD SCH (10:37)
--- NOTE | 2016-09-07 10:47 | PN ---
BHS Progress Note (SOAP) Subjective: interrupted sleep, but better Objective: 09/07/16 10:46 Vital Signs Temperature 97.2 F L 09/07/16 09:46 Pulse Rate 69 09/07/16 09:46 Respiratory Rate 18 09/07/16 09:46 Blood Pressure 134/75 09/07/16 09:46 O2 Sat by Pulse Oximetry (%) Laboratory Tests 09/04/16 09/04/16 09/05/16 08:00 23:00 06:00 WBC 5.9 RBC 5.28 Hgb 14.2 Hct 43.9 MCV 83.1 MCHC 32.3 RDW 17.6 H Plt Count 222 MPV 9.2 D Sodium Potassium Chloride Carbon Dioxide Anion Gap BUN Creatinine Creat Clearance w eGFR Random Glucose Calcium Total Bilirubin AST ALT Alkaline Phosphatase Total Protein Albumin Urine Color Ltyellow Urine Appearance Clear Urine pH 6.0 Ur Specific [place] 1.012 Urine Protein Negative Urine Glucose (UA) Negative Urine Ketones Negative Urine Blood Negative Urine Nitrite Negative Urine Bilirubin Negative Urine Urobilinogen Negative Ur Leukocyte Esterase Negative RPR Titer Hepatitis C Antibody >11.0 H 09/05/16 09/05/16 06:00 06:00 WBC RBC Hgb Hct MCV MCHC RDW Plt Count MPV Sodium 139 Potassium 4.1 Chloride 103 Carbon Dioxide 30 Anion Gap 6 L BUN 7 D Creatinine 0.7 Creat Clearance w eGFR > 60 Random Glucose 111 H Calcium 8.8 Total Bilirubin 0.4 AST 15 ALT 20 D Alkaline Phosphatase 123 H Total Protein 7.3 Albumin 3.9 D Urine Color Urine Appearance Urine pH Ur Specific [place] Urine Protein Urine Glucose (UA) Urine Ketones Urine Blood Urine Nitrite Urine Bilirubin Urine Urobilinogen Ur Leukocyte Esterase RPR Titer Nonreactive Hepatitis C Antibody pt aox3 in nad ambulating Assessment: 09/07/16 10:46 withdrawal sx's mmtp Plan: cont. detox increase fluids d/c in am
[2016-09-07] MEDS: chlordiazePOXIDE HCL 10 MG CAPSULE PO SCH ×2 (17:49→22:17)
[2016-09-07] MEDS: THIAMINE HCL 100 MG TABLET (FP) PO SCH (22:17)
[2016-09-07] MEDS: diphenhydrAMINE HCL 50 MG CAPSULE PO PRN (22:17)
[2016-09-07] MEDS: ARIPiprazole 10 MG TABLET PO SCH (22:17)
[2016-09-08] MEDS ORDERED: METHADONE HCL 10 MG TABLET ONE (04:18)
[2016-09-08] MEDS ORDERED: METHADONE HCL 40 MG DISPERSABLE TABLET ONE (04:19)
[2016-09-08] MEDS: chlordiazePOXIDE HCL 10 MG CAPSULE PO SCH (05:17)
[2016-09-08] MEDS: METHADONE 120 MG, METHADONE 30 MG PO SCH (05:17)
[2016-09-08 06:14] VITALS: TEMP 97.7
--- NOTE | 2016-09-08 09:04 | PN ---
S Progress Note (SOAP) Subjective: alert,no complaint Objective: 09/08/16 09:03 Vital Signs Temperature 97.7 F 09/08/16 06:00 Pulse Rate 63 09/08/16 06:00 Respiratory Rate 18 09/08/16 06:00 Blood Pressure 117/72 09/08/16 06:00 O2 Sat by Pulse Oximetry (%) Assessment: 09/08/16 09:03 detox completed,no withdrawal symptom Plan: discharge today,follow up with after care program as arrangement
--- NOTE | 2016-09-08 09:05 | DS ---
[facility] Detox Discharge Summary Admission Date: 09/04/16 Discharge Date: 09/08/16 - History Present History: Alcohol Dependence, Cocaine Dependence, Opioid Dependence, Sedative Dependence, MMTP Additional Comments: follow up with after care program as arrangement and pmd and psychiatrist for follow up Pertinent Past History: hepatitis c bipolar disorder mmtp - Physical Exam Results Vital Signs: Vital Signs Temperature 97.7 F 09/08/16 06:00 Pulse Rate 63 09/08/16 06:00 Respiratory Rate 18 09/08/16 06:00 Blood Pressure 117/72 09/08/16 06:00 O2 Sat by Pulse Oximetry (%) Pertinent Admission Physical Exam Findings: withdrawal symptom - Treatment Hospital Course: Detox Protocol Followed, Detoxed Safely, Responded well, Discharged Condition Good Patient has Accepted a Rehab Referral to: declined - Medication Discharge Medications: Ambulatory Orders Zolpidem Tartrate [Ambien] 10 mg PO HS 09/30/15 Aripiprazole [Abilify -] 10 mg PO DAILY #30 tablet 10/01/15 Venlafaxine HCl ER [Effexor Xr -] 75 mg PO DAILY #30 cap.er.24h 10/01/15 Thiamine HCl [Vitamin B1 -] 100 mg PO HS #30 tablet 10/04/15 Aripiprazole [Abilify -] 10 mg PO HS #30 tablet 09/05/16 Venlafaxine HCl ER [Effexor Xr -] 75 mg PO DAILY #30 cap.er.24h 09/05/16 - AMA Did Patient Leave Against Medical Advice: No
[2016-09-08] MEDS: PRENATAL VITAMINS W/ FOLIC ACID TABLET (FP) PO SCH (09:25)
[2016-09-08] MEDS: VENLAFAXINE HCL 75 MG E.R. CAPSULES (FP) PO SCH (09:25)
[2016-09-08 10:06] VITALS: BP 129/73; PULSE 76
== END 2016-09-08 09:30 | disposition home or self-care (01) | DRG 773 ==
LOC: YASAS 13:26 → Y6N 16:07
PROVIDERS: ADMIT Internal Medicine Addiction Medicine; ATTEND Internal Medicine Addiction Medicine
PROC: HZ2ZZZZ Detoxification Services for Substance Abuse Treatment (ICD-10-PCS; principal; 2016-09-08)
DX: F11.20 Opioid dependence, uncomplicated (principal); F13.230 Sedative, hypnotic or anxiolytic dependence with withdrawal, uncomplicated; F10.230 Alcohol dependence with withdrawal, uncomplicated; F14.23 Cocaine dependence with withdrawal; F17.210 Nicotine dependence, cigarettes, uncomplicated; F19.24 Other psychoactive substance dependence with psychoactive substance-induced mood disorder; F31.9 Bipolar disorder, unspecified; B18.2 Chronic viral hepatitis C; E66.9 Obesity, unspecified; Z68.29 Body mass index [BMI] 29.0-29.9, adult
CPT/HCPCS: 36415; 80053; 81003; 85027; 86593; 87522; 93005; 93010

== ENCOUNTER 2016-11-28 16:13 | Inpatient (IN) | payer OTHER ==
[2016-11-28 19:20] VITALS: BMI 27.6
--- NOTE | 2016-11-28 19:36 | HP ---
CIWA Score - CIWA Score Nausea/Vomitin-Mild Nausea/No Vomiting Muscle Tremors: 4-Moderate,w/Arms Extend Anxiety: 4-Mod. Anxious/Guarded Agitation: 4-Moderately Restless Paroxysmal Sweats: 1-Minimal Palms Moist Orientation: 1-Uncertain about Date Tacttile Disturbances: 0-None Auditory Disturbances: 0-None Visual Disturbances: 0-None Headache: 0-None Present CIWA-Ar Total Score: 15 Admission ROS BHS - HPI Chief Complaint: withdrawal sx Allergies/Adverse Reactions: Allergies Allergy/AdvReac Type Severity Reaction Status Date / Time No Known Allergies Allergy Verified 09/04/16 15:22 History of Present Illness: 36 years old male with long history of alcohol nicotine dependence has gerd asthma and bipolar ii is admitted to detox Exam Limitations: No Limitations - Ebola screening Have you traveled outside of the country in the last 21 days: No (N) Have you had contact with anyone from an Ebola affected area: No Have you been sick,other than usual withdrawal symptoms: No Do you have a fever: No - Review of Systems Constitutional: Chills, Changes in sleep, Weight Stable EENT: reports: No Symptoms Reported Respiratory: reports: SOB with Exertion Cardiac: reports: No Symptoms Reported GI: reports: Nausea, Poor Fluid Intake, Indigestion, Abdominal cramping : reports: No Symptoms Reported Musculoskeletal: reports: Back Pain, Joint Pain, Muscle Pain, Neck Pain Integumentary: reports: Change in Color (both arms) Neuro: reports: Tremors Endocrine: reports: No Symptoms Reported Hematology: reports: No Symptoms Reported Psychiatric: reports: Judgement Intact, Anxious, Depressed Other Systems: Reviewed and Negative Patient History - Patient Medical History Hx Anemia: No Hx Asthma: Yes Hx Chronic Obstructive Pulmonary Disease (COPD): No Hx Cancer: No Hx Cardiac Disorders: No Hx Congestive Heart Failure: No Hx Hypertension: No Hx Hypercholesterolemia: No Hx Pacemaker: No HX Cerebrovascular Accident: No Hx Seizures: No Hx Dementia: No Hx Diabetes: No Hx Gastrointestinal Disorders: No Hx Liver Disease: Yes Hx Genitourinary Disorders: No Hx Sexually Transmitted Disorders: No Hx Renal Disease (ESRD): No Hx Thyroid Disease: No Hx Human Immunodeficiency Virus (HIV): No Hx Hepatitis C: Yes (TREATED) Hx Depression: No Hx Suicide Attempt: No Hx Bipolar Disorder: Yes (EFFEXOR) Hx Schizophrenia: No - Patient Surgical History Past Surgical History: No Hx Neurologic Surgery: No Hx Cataract Extraction: No Hx Cardiac Surgery: No Hx Lung Surgery: No Hx Breast Surgery: No Hx Breast Biopsy: No Hx Abdominal Surgery: No Hx Appendectomy: No Hx Cholecystectomy: No Hx Genitourinary Surgery: No Hx Orthopedic Surgery: No - PPD History Previous Implant?: Yes Documented Results: Negative w/o proof Implanted On Prior [facility] Admission?: Yes Date: 08/22/15 Results: 0 mm PPD to be Administered?: Yes - Smoking Cessation Smoking history: Current every day smoker Have you smoked in the past 12 months: Yes Aproximately how many cigarettes per day: 20 Cigars Per Day: 0 Hx Chewing Tobacco Use: No Initiated information on smoking cessation: Yes 'Breaking Loose' booklet given: 11/28/16 - Substance & Tx. History Hx Alcohol Use: Yes Hx Substance Use: Yes Substance Use Type: Alcohol, Cocaine, Opiates Hx Substance Use Treatment: Yes - Substances Abused Alcohol Route: Oral Frequency: Daily Amount used: [id number] Age of first use: 18 Date of Last Use: 11/28/16 Family Disease History - Family Disease History Family Disease History: Diabetes: Father (ALCOHOLIC), Mother, Heart Disease: Father, Other: Father Admission Physical Exam BHS - Vital Signs Vital Signs: Vital Signs - 24 hr 11/28/16 19:17 Temperature 98.3 F Pulse Rate 67 Respiratory 20 Rate Blood Pressure 138/73 - Physical General Appearance: Yes: Nourished, Appropriately Dressed, Mild Distress, Alcohol on Breath, Tremorous, Irritable, Sweating, Anxious HEENTM: Yes: Hearing grossly Normal, Normal ENT Inspection, Normocephalic, Normal Voice Respiratory: Yes: Chest Non-Tender, No Respiratory Distress, No Accessory Muscle Use, Wheezing Neck: Yes: Supple, Trachea in good position Breast: Yes: Breasts Symetrical Cardiology: Yes: Regular Rhythm, Regular Rate, S1, S2 Abdominal: Yes: Non Tender, Soft Genitourinary: Yes: Within Normal Limits Back: Yes: Normal Inspection Musculoskeletal: Yes: full range of Motion, Gait Steady, Back pain, Muscle Pain (right hand) Extremities: Yes: Normal Range of Motion, Non-Tender, Tremors, Swelling (right hand + both ankles) Neurological: Yes: Alert, Motor Strength 5/5, Normal Response, Depressed Affect Integumentary: Yes: Warm, Track [place] Lymphatic: Yes: Within Normal Limits - Diagnostic (1) Alcohol dependence with uncomplicated withdrawal Current Visit: Yes Status: Acute (2) Cocaine dependence with withdrawal Current Visit: Yes Status: Chronic (3) Nicotine dependence Current Visit: Yes Status: Acute Qualifiers: Nicotine product type: cigarettes Substance use status: in withdrawal Qualified Code(s): F17.213 - Nicotine dependence, cigarettes, with withdrawal (4) Hepatitis C Current Visit: Yes Status: Chronic Qualifiers: Viral hepatitis chronicity: chronic Hepatic coma status: without hepatic coma Qualified Code(s): B18.2 - Chronic viral hepatitis C (5) Methadone maintenance therapy patient Current Visit: Yes Status: Chronic Comment: 150 mg verification pending (6) Asthma Current Visit: Yes Status: Chronic Qualifiers: Asthma severity: mild persistent Asthma complication type: with status asthmaticus Qualified Code(s): J45.32 - Mild persistent asthma with status asthmaticus (7) Abrasion of skin Current Visit: Yes Status: Acute Comment: right hand abscess, treated with I&D + oral antibiotic = completed bacitracin ointment Cleared for Admission S - Detox or Rehab [facility] Level of Care: Medically Managed Detox Regimen/Protocol: Librium [facility] Breath Alcohol Content Breath Alcohol Content: 0.061 Urine Drug Screen - Results Drug Screen Negative: No Urine Drug Screen Results: AV-Cocaine, OPI-Opiates, MTD-Methadone
[2016-11-28] MEDS ORDERED: ACETAMINOPHEN 325 MG TABLET (FP) PO PRN (19:39)
[2016-11-28] MEDS ORDERED: NICOTINE POLACRILEX 4 MG GUM BUC PRN (19:39)
[2016-11-28] MEDS ORDERED: MAG HYDROX/AL HYDROX/SIMETH 30 ML UNIT-DOSE CUP PO PRN (19:39)
[2016-11-28] MEDS ORDERED: guaiFENesin/D-METHORPHAN HB 10 ML UNIT-DOSE CUPS PO PRN (19:39)
[2016-11-28] MEDS ORDERED: LOPERAMIDE HCL 2 MG CAPSULE PO PRN (19:39)
[2016-11-28] MEDS ORDERED: MAGNESIUM CITRATE 300 ML BOTTLE PO PRN (19:39)
[2016-11-28] MEDS ORDERED: chlordiazePOXIDE HCL 25 MG CAPSULE PO PRN (19:39)
[2016-11-28] MEDS ORDERED: P-EPHED 60MG/TRIPROLIDI 2.5MG TABLET PO PRN (19:39)
[2016-11-28] MEDS ORDERED: chlordiazePOXIDE HCL 25 MG CAPSULE PO ONE (19:39)
[2016-11-28] MEDS ORDERED: MENTHOL/PHENOL 1 EACH UD MM PRN (19:39)
[2016-11-28] MEDS ORDERED: MAGNESIUM HYDROX 2400MG/30ML ORAL SUSPENSION 30 ML CUP PO PRN (19:39)
[2016-11-28] MEDS ORDERED: ALBUTEROL SO4 6.7 GM HFA INHALER IH PRN (19:43)
[2016-11-28] MEDS ORDERED: BACITRACIN 0.9 GM PACKET TP ONE (19:43)
[2016-11-28] MEDS: RANITIDINE HCL 150 MG TABLET (FP) PO SCH (21:21)
[2016-11-28] MEDS: THIAMINE HCL 100 MG TABLET (FP) PO SCH (21:21)
[2016-11-28 21:25] LABS: URINE APPEARANCE CLEAR; URINE BILIRUBIN NEGATIVE (NEGATIVE); URINE BLOOD NEGATIVE (NEGATIVE); URINE COLOR YELLOW; URINE GLUCOSE (UA) NEGATIVE (NEGATIVE); URINE KETONE NEGATIVE (NEGATIVE); URINE LEUK ESTERASE TRACE (NEGATIVE); URINE NITRITE NEGATIVE (NEGATIVE); URINE PROTEIN NEGATIVE (NEGATIVE); URINE UROBILINOGEN 4.0 E.U/dl E.U./dl (0.2-1.0)
[2016-11-28 21:27] LABS: URINE MUCUS RARE; URINE RBC 1 /hpf (0-3); URINE WBC 2 /hpf (3-5)
[2016-11-28] MEDS: chlordiazePOXIDE HCL 25 MG CAPSULE PO SCH (22:42)
[2016-11-29] MEDS: chlordiazePOXIDE HCL 25 MG CAPSULE PO SCH ×4 (05:27→22:17)
[2016-11-29] MEDS ORDERED: METHADONE HCL 10 MG TABLET PO ONE (08:14)
[2016-11-29] MEDS ORDERED: METHADONE 120 MG, METHADONE 30 MG PO ONE (08:35)
[2016-11-29] MEDS ORDERED: METHADONE HCL 40 MG DISPERSABLE TABLET ONE (09:20)
[2016-11-29] MEDS ORDERED: METHADONE HCL 10 MG TABLET ONE (09:20)
--- NOTE | 2016-11-29 09:23 | PN ---
S CIWA - CIWA Score Nausea/Vomitin Muscle Tremors: 3 Anxiety: 3 Agitation: 3 Paroxysmal Sweats: 1-Minimal Palms Moist Orientation: 0-Oriented Tacttile Disturbances: 1-Very Mild Itch/Numbness Auditory Disturbances: 1-Very Mild Visual Disturbances: 1-Very Mild Sensitivity Headache: 2-Mild CIWA-Ar Total Score: 18 BHS Progress Note (SOAP) Subjective: ALERT,IRRITABLE,ANXIOUS,INTERRUPTED SLEEP,TREMOR,PAIN IN THE BODY AND BACK Objective: 11/29/16 09:20 Vital Signs Temperature 98.1 F 11/29/16 06:04 Pulse Rate 56 L 11/29/16 06:04 Respiratory Rate 16 11/29/16 06:04 Blood Pressure 105/63 11/29/16 06:04 O2 Sat by Pulse Oximetry (%) EKG NSR,NORMAL ECG Laboratory Last Values Urine Color Yellow 11/28/16 21:00 Urine Appearance Clear 11/28/16 21:00 Urine pH 6.0 (5.0-8.0) 11/28/16 21:00 Ur Specific [place] 1.020 (1.005-1.025) 11/28/16 21:00 Urine Protein Negative (NEGATIVE) 11/28/16 21:00 Urine Glucose (UA) Negative (NEGATIVE) 11/28/16 21:00 Urine Ketones Negative (NEGATIVE) 11/28/16 21:00 Urine Blood Negative (NEGATIVE) 11/28/16 21:00 Urine Nitrite Negative (NEGATIVE) 11/28/16 21:00 Urine Bilirubin Negative (NEGATIVE) 11/28/16 21:00 Urine Urobilinogen 4.0 e.u/dl E.U./dl (0.2-1.0) 11/28/16 21:00 Ur Leukocyte Esterase Trace (NEGATIVE) H 11/28/16 21:00 Urine RBC 1 /hpf (0-3) 11/28/16 21:00 Urine WBC 2 /hpf (3-5) 11/28/16 21:00 Urine Mucus Rare 11/28/16 21:00 LABS PENDING Assessment: 11/29/16 09:22 WITHDRAWAL SYMPTOM Plan: CONTINUE DETOX
[2016-11-29] MEDS: RANITIDINE HCL 150 MG TABLET (FP) PO SCH ×2 (10:03→22:17)
[2016-11-29] MEDS: PRENATAL VITAMINS W/ FOLIC ACID TABLET (FP) PO SCH (10:03)
[2016-11-29] MEDS: NICOTINE 21 MG/24 HOURS TOPICAL PATCH TD SCH (10:06)
[2016-11-29 10:18] LABS: MCH 28.1 pg (25.7-33.7); MCHC 33.2 g/dl (32.0-35.9); MEAN CELL VOLUME 84.4 fl (80-96); MEAN PLT VOLUME 8.5 fl (7.5-11.1); PLATELET COUNT 202 K/MM3 (134-434); RDW 15.2 % (11.9-15.9); WHITE BLOOD COUNT 4.4 K/mm3 (4.0-10.0)
[2016-11-29 10:34] LABS: ALBUMIN 3.2 g/dl (3.4-5.0); ALK PHOS 121 U/L (45-117); ANION GAP 6 (8-16); BILIRUBIN,TOTAL 0.4 mg/dL (0.2-1.0); CALCIUM 8.7 mg/dL (8.5-10.1); CO2 32 mmol/L (21-32); COCKROFT - GAULT 178.39; CREATININE 0.7 mg/dL (0.7-1.3); GLUCOSE,RANDOM 123 mg/dL (74-106); SGOT/AST 17 U/L (15-37); SGPT/ALT 17 U/L (12-78); TOT PROT 6.8 g/dl (6.4-8.2)
--- NOTE | 2016-11-29 12:39 | CONSULT ---
[facility] Psychiatric Consult - Data Date of interview: 11/29/16 Admission source: [facility] Identifying data: Another admission to [facility] 36 [facility] treatment on for heroin,alcohol,xanax and cocaine dependence.Patient is ,a father of two,domiciled,unemployed and supported on welfare. Substance Abuse History: - Smoking Cessation. Smoking history: Current every day smoker. Have you smoked in the past 12 months: Yes. Aproximately how many cigarettes per day: 20. Cigars Per Day: 0. Hx Chewing Tobacco Use: No. Initiated information on smoking cessation: Yes. 'Breaking Loose' booklet given : 11/28/16. - Substance & Tx. History. Hx Alcohol Use: Yes. Hx Substance Use : Yes. Substance Use Type: Alcohol, Cocaine, Opiates. Hx Substance Use Treatment: Yes. - Substances Abused. Alcohol. Route: Oral. Frequency: Daily. Amount used: [id number]. Age of first use: 18. Date of Last Use: . Confirmed by patient. Medical History: Bronchial asthma and hepatitis C. Psychiatric History: Past history of two psychiatric hospitalizations in [facility].Diagnosed with Bipolar Disorder and MDD.Mr Marcello still gets his psychiatric OPD care at the [facility],in the [place].Maintained on effexor, ambien,wellbutrin and klonopin (no doses recalled).Patient denies history of suicide attempts.Currently on methadone maintenance (150 mg/day). Physical/Sexual Abuse/Trauma History: Patient denies. Additional Comment: Urine Drug Screen Results: AV-Cocaine, OPI-Opiates, MTD- Methadone.Noted. Mental Status Exam - Mental Status Exam Alert and Oriented to: Time, Place, Person Cognitive Function: Good Patient Appearance: Well Groomed Mood: Withdrawn, Anxious, Irritable Affect: Mood Congruent, Constricted Patient Behavior: Sedated (mild sedation), Fatigued Speech Pattern: Clear, Appropriate Voice Loudness: Normal Thought Process: Goal Oriented Thought Disorder: Not Present Hallucinations: Denies Suicidal Ideation: Denies Homicidal Ideation: Denies Insight/Judgement: Poor Sleep: Well Appetite: Good Muscle strength/Tone: Normal Gait/Station: Normal Psychiatric Findings - Problem List ([place] 1, 2,3) (1) Alcohol dependence with uncomplicated withdrawal Current Visit: Yes Status: Acute (2) Cocaine dependence with withdrawal Current Visit: Yes Status: Acute (3) Opioid dependence on agonist therapy Current Visit: Yes Status: Acute (4) Substance induced mood disorder Current Visit: Yes Status: Acute (5) Uncomplicated sedative, hypnotic, or anxiolytic withdrawal Current Visit: Yes Status: Acute (6) Nicotine dependence Current Visit: Yes Status: Acute Qualifiers: Nicotine product type: cigarettes Substance use status: in withdrawal Qualified Code(s): F17.213 - Nicotine dependence, cigarettes, with withdrawal (7) Bipolar disorder Current Visit: Yes Status: Chronic Qualifiers: Active/Remission status: currently active Current episode severity: unspecified Comment: History. (8) Abrasion of skin Current Visit: Yes Status: Acute Comment: right hand abscess, treated with I&D + oral antibiotic = completed bacitracin ointment (9) Asthma Current Visit: Yes Status: Chronic Qualifiers: Asthma severity: mild persistent Asthma complication type: with status asthmaticus Qualified Code(s): J45.32 - Mild persistent asthma with status asthmaticus (10) Hepatitis C Current Visit: Yes Status: Chronic Qualifiers: Viral hepatitis chronicity: chronic Hepatic coma status: without hepatic coma Qualified Code(s): B18.2 - Chronic viral hepatitis C (11) Obesity Current Visit: Yes Status: Chronic Qualifiers: Obesity type: unspecified obesity type - Initial Treatment Plan Initial Treatment Plan: Psychoeducation.Detoxification.medications : wellbutrin XL 75 mg po daily + abilify 10 mg po hs.Side effects/benefits discussed with patient.He agrees with this careplan.Observation.
--- NOTE | 2016-11-29 12:39 | EKG ---
Test Reason : Blood Pressure : / mmHG Vent. Rate : 072 BPM Atrial Rate : 072 BPM P-R Int : 122 ms QRS Dur : 086 ms QT Int : 394 ms P-R-T Axes : 047 066 037 degrees QTc Int : 431 ms NORMAL SINUS RHYTHM NORMAL ECG WHEN COMPARED WITH ECG OF 04-SEP-2016 17:16, NO SIGNIFICANT CHANGE WAS FOUND Confirmed by ADEEL AMADOR MD ([id number]) on 11/29/2016 12:39:10 PM Referred By: Pipe Robles Confirmed By:ADEEL AMADOR MD
[2016-11-29] MEDS: ARIPiprazole 10 MG TABLET PO SCH (22:17)
[2016-11-29] MEDS: diphenhydrAMINE HCL 50 MG CAPSULE PO PRN (22:18)
[2016-11-29] MEDS: THIAMINE HCL 100 MG TABLET (FP) PO SCH (22:18)
[2016-11-30] MEDS ORDERED: METHADONE HCL 10 MG TABLET ONE (04:07)
[2016-11-30] MEDS ORDERED: METHADONE HCL 40 MG DISPERSABLE TABLET ONE (04:07)
[2016-11-30] MEDS: METHADONE 120 MG, METHADONE 30 MG PO SCH (05:25)
[2016-11-30] MEDS: chlordiazePOXIDE HCL 25 MG CAPSULE PO SCH ×3 (05:25→17:02)
[2016-11-30] MEDS ORDERED: METHADONE HCL 40 MG DISPERSABLE TABLET PO SCH (06:00)
[2016-11-30] MEDS: CYCLOBENZAPRINE HCL 10 MG TABLET (FP) PO PRN ×2 (10:03→22:02)
[2016-11-30] MEDS: RANITIDINE HCL 150 MG TABLET (FP) PO SCH ×2 (10:03→22:01)
[2016-11-30] MEDS: VENLAFAXINE HCL 75 MG E.R. CAPSULES (FP) PO SCH (10:03)
[2016-11-30] MEDS: PRENATAL VITAMINS W/ FOLIC ACID TABLET (FP) PO SCH (10:03)
[2016-11-30] MEDS: NICOTINE 21 MG/24 HOURS TOPICAL PATCH TD SCH (10:53)
--- NOTE | 2016-11-30 11:07 | PN ---
S CIWA - CIWA Score Nausea/Vomitin Muscle Tremors: 4-Moderate,w/Arms Extend Anxiety: 3 Agitation: 2 Paroxysmal Sweats: 3 Orientation: 1-Uncertain about Date Tacttile Disturbances: 2-Mild Itch/Numbness/Burn Auditory Disturbances: 0-None Visual Disturbances: 0-None Headache: 3-Moderate CIWA-Ar Total Score: 20 BHS Progress Note (SOAP) Subjective: Sweating, Interrupted Sleep, H/A, Tremors. Objective: PT. A & O X 2 (DISORIENTED ABOUT DAY / DATE). 11/30/16 11:05 Vital Signs Temperature 97.6 F 11/30/16 09:02 Pulse Rate 60 11/30/16 09:02 Respiratory Rate 18 11/30/16 09:02 Blood Pressure 118/63 11/30/16 09:02 O2 Sat by Pulse Oximetry (%) Laboratory Tests 11/28/16 11/29/16 11/29/16 21:00 07:00 07:00 WBC 4.4 RBC 4.68 Hgb 13.1 Hct 39.5 MCV 84.4 MCHC 33.2 RDW 15.2 D Plt Count 202 MPV 8.5 Sodium 141 Potassium 4.6 Chloride 103 Carbon Dioxide 32 Anion Gap 6 L BUN 13 D Creatinine 0.7 Creat Clearance w eGFR > 60 Random Glucose 123 H Calcium 8.7 Total Bilirubin 0.4 AST 17 ALT 17 Alkaline Phosphatase 121 H Total Protein 6.8 Albumin 3.2 L Urine Color Yellow Urine Appearance Clear Urine pH 6.0 Ur Specific [place] 1.020 Urine Protein Negative Urine Glucose (UA) Negative Urine Ketones Negative Urine Blood Negative Urine Nitrite Negative Urine Bilirubin Negative Urine Urobilinogen 4.0 e.u/dl Ur Leukocyte Esterase Trace H Urine RBC 1 Urine WBC 2 Urine Mucus Rare RPR Titer 11/29/16 07:00 WBC RBC Hgb Hct MCV MCHC RDW Plt Count MPV Sodium Potassium Chloride Carbon Dioxide Anion Gap BUN Creatinine Creat Clearance w eGFR Random Glucose Calcium Total Bilirubin AST ALT Alkaline Phosphatase Total Protein Albumin Urine Color Urine Appearance Urine pH Ur Specific [place] Urine Protein Urine Glucose (UA) Urine Ketones Urine Blood Urine Nitrite Urine Bilirubin Urine Urobilinogen Ur Leukocyte Esterase Urine RBC Urine WBC Urine Mucus RPR Titer Nonreactive LABS NOTED. Assessment: 11/30/16 11:05 WITHDRAWAL SYMPTOMS. Plan: CONTINUE DETOX.
[2016-11-30] MEDS: BACITRACIN 0.9 GM PACKET TP SCH (22:01)
[2016-11-30] MEDS: chlordiazePOXIDE 5 MG CAPSULE PO SCH (22:01)
[2016-11-30] MEDS: diphenhydrAMINE HCL 50 MG CAPSULE PO PRN (22:02)
[2016-11-30] MEDS: ARIPiprazole 10 MG TABLET PO SCH (22:02)
[2016-11-30] MEDS: THIAMINE HCL 100 MG TABLET (FP) PO SCH (22:44)
[2016-12-01] MEDS ORDERED: METHADONE HCL 10 MG TABLET ONE (04:31)
[2016-12-01] MEDS ORDERED: METHADONE HCL 40 MG DISPERSABLE TABLET ONE (04:31)
[2016-12-01] MEDS: chlordiazePOXIDE 5 MG CAPSULE PO SCH ×3 (05:23→16:51)
[2016-12-01] MEDS: METHADONE 120 MG, METHADONE 30 MG PO SCH (05:23)
[2016-12-01] MEDS: RANITIDINE HCL 150 MG TABLET (FP) PO SCH ×2 (10:04→22:01)
[2016-12-01] MEDS: BACITRACIN 0.9 GM PACKET TP SCH ×2 (10:04→22:01)
[2016-12-01] MEDS: CYCLOBENZAPRINE HCL 10 MG TABLET (FP) PO PRN (10:04)
[2016-12-01] MEDS: VENLAFAXINE HCL 75 MG E.R. CAPSULES (FP) PO SCH (10:04)
[2016-12-01] MEDS: NICOTINE 21 MG/24 HOURS TOPICAL PATCH TD SCH (10:06)
[2016-12-01] MEDS: PRENATAL VITAMINS W/ FOLIC ACID TABLET (FP) PO SCH (10:06)
--- NOTE | 2016-12-01 11:13 | PN ---
[facility] Progress Note (SOAP) Subjective: Sweating,interrupted sleep,restless Objective: 12/01/16 11:12 Vital Signs - 8 hr 12/01/16 12/01/16 12/01/16 03:30 06:11 09:07 Temperature 96.4 F L 96.5 F L Pulse Rate 53 L 58 L Respiratory 18 16 18 Rate Blood Pressure 118/64 123/69 Laboratory Last Values WBC 4.4 K/mm3 (4.0-10.0) 11/29/16 07:00 RBC 4.68 M/mm3 (4.00-5.60) 11/29/16 07:00 Hgb 13.1 GM/dL (11.7-16.9) 11/29/16 07:00 Hct 39.5 % (35.4-49) 11/29/16 07:00 MCV 84.4 fl (80-96) 11/29/16 07:00 MCHC 33.2 g/dl (32.0-35.9) 11/29/16 07:00 RDW 15.2 % (11.9-15.9) D 11/29/16 07:00 Plt Count 202 K/MM3 (134-434) 11/29/16 07:00 MPV 8.5 fl (7.5-11.1) 11/29/16 07:00 Sodium 141 mmol/L (136-145) 11/29/16 07:00 Potassium 4.6 mmol/L (3.5-5.1) 11/29/16 07:00 Chloride 103 mmol/L (98-107) 11/29/16 07:00 Carbon Dioxide 32 mmol/L (21-32) 11/29/16 07:00 Anion Gap 6 (8-16) L 11/29/16 07:00 BUN 13 mg/dL (7-18) D 11/29/16 07:00 Creatinine 0.7 mg/dL (0.7-1.3) 11/29/16 07:00 Creat Clearance w eGFR > 60 (>60) 11/29/16 07:00 Random Glucose 123 mg/dL (74-106) H 11/29/16 07:00 Calcium 8.7 mg/dL (8.5-10.1) 11/29/16 07:00 Total Bilirubin 0.4 mg/dL (0.2-1.0) 11/29/16 07:00 AST 17 U/L (15-37) 11/29/16 07:00 ALT 17 U/L (12-78) 11/29/16 07:00 Alkaline Phosphatase 121 U/L (45-117) H 11/29/16 07:00 Total Protein 6.8 g/dl (6.4-8.2) 11/29/16 07:00 Albumin 3.2 g/dl (3.4-5.0) L 11/29/16 07:00 Urine Color Yellow 11/28/16 21:00 Urine Appearance Clear 11/28/16 21:00 Urine pH 6.0 (5.0-8.0) 11/28/16 21:00 Ur Specific [place] 1.020 (1.005-1.025) 11/28/16 21:00 Urine Protein Negative (NEGATIVE) 11/28/16 21:00 Urine Glucose (UA) Negative (NEGATIVE) 11/28/16 21:00 Urine Ketones Negative (NEGATIVE) 11/28/16 21:00 Urine Blood Negative (NEGATIVE) 11/28/16 21:00 Urine Nitrite Negative (NEGATIVE) 11/28/16 21:00 Urine Bilirubin Negative (NEGATIVE) 11/28/16 21:00 Urine Urobilinogen 4.0 e.u/dl E.U./dl (0.2-1.0) 11/28/16 21:00 Ur Leukocyte Esterase Trace (NEGATIVE) H 11/28/16 21:00 Urine RBC 1 /hpf (0-3) 11/28/16 21:00 Urine WBC 2 /hpf (3-5) 11/28/16 21:00 Urine Mucus Rare 11/28/16 21:00 RPR Titer Nonreactive (NONREACTIVE) 11/29/16 07:00 labs noted Assessment: 12/01/16 11:13 Withdrawal sx. Plan: Continue detox
[2016-12-01] MEDS: chlordiazePOXIDE HCL 10 MG CAPSULE PO SCH (22:01)
[2016-12-01] MEDS: THIAMINE HCL 100 MG TABLET (FP) PO SCH (22:01)
[2016-12-01] MEDS: ARIPiprazole 10 MG TABLET PO SCH (22:02)
[2016-12-01] MEDS: diphenhydrAMINE HCL 50 MG CAPSULE PO PRN (22:02)
[2016-12-02] MEDS ORDERED: METHADONE HCL 10 MG TABLET ONE (03:12)
[2016-12-02] MEDS ORDERED: METHADONE HCL 40 MG DISPERSABLE TABLET ONE (03:13)
[2016-12-02] MEDS: chlordiazePOXIDE HCL 10 MG CAPSULE PO SCH (05:43)
[2016-12-02] MEDS: METHADONE 120 MG, METHADONE 30 MG PO SCH (05:43)
[2016-12-02 06:19] VITALS: BP 113/73; PULSE 56; TEMP 97.9
--- NOTE | 2016-12-02 10:14 | DS ---
[facility] Detox Discharge Summary Admission Date: 11/28/16 Discharge Date: 12/02/16 - History Present History: Alcohol Dependence, Opioid Dependence, MMTP Pertinent Past History: Hepatitis C, treated, asthma, - Physical Exam Results Vital Signs: Vital Signs Temperature 97.9 F 12/02/16 06:18 Pulse Rate 56 L 12/02/16 06:18 Respiratory Rate 18 12/02/16 06:18 Blood Pressure 113/73 12/02/16 06:18 O2 Sat by Pulse Oximetry (%) Pertinent Admission Physical Exam Findings: withdrawal sx Lab Results WBC 4.4 K/mm3 (4.0-10.0) 11/29/16 07:00 RBC 4.68 M/mm3 (4.00-5.60) 11/29/16 07:00 Hgb 13.1 GM/dL (11.7-16.9) 11/29/16 07:00 Hct 39.5 % (35.4-49) 11/29/16 07:00 MCV 84.4 fl (80-96) 11/29/16 07:00 MCHC 33.2 g/dl (32.0-35.9) 11/29/16 07:00 RDW 15.2 % (11.9-15.9) D 11/29/16 07:00 Plt Count 202 K/MM3 (134-434) 11/29/16 07:00 Sodium 141 mmol/L (136-145) 11/29/16 07:00 Potassium 4.6 mmol/L (3.5-5.1) 11/29/16 07:00 Chloride 103 mmol/L (98-107) 11/29/16 07:00 Carbon Dioxide 32 mmol/L (21-32) 11/29/16 07:00 Anion Gap 6 (8-16) L 11/29/16 07:00 BUN 13 mg/dL (7-18) D 11/29/16 07:00 Creatinine 0.7 mg/dL (0.7-1.3) 11/29/16 07:00 Random Glucose 123 mg/dL (74-106) H 11/29/16 07:00 Calcium 8.7 mg/dL (8.5-10.1) 11/29/16 07:00 labs noted - Treatment Hospital Course: Detox Protocol Followed, Detoxed Safely, Responded well, Rehab Referral Accepted - Medication Discharge Medications: Ambulatory Orders Zolpidem Tartrate [Ambien] 10 mg PO HS 09/30/15 Aripiprazole [Abilify -] 10 mg PO DAILY #30 tablet 10/01/15 Venlafaxine HCl ER [Effexor Xr -] 75 mg PO DAILY #30 cap.er.24h 10/01/15 - Diagnosis (1) Alcohol dependence with uncomplicated withdrawal Current Visit: Yes Status: Acute (2) Cocaine dependence with withdrawal Current Visit: Yes Status: Acute (3) Nicotine dependence Current Visit: Yes Status: Acute Qualifiers: Nicotine product type: cigarettes Substance use status: in withdrawal Qualified Code(s): F17.213 - Nicotine dependence, cigarettes, with withdrawal (4) Substance induced mood disorder Current Visit: Yes Status: Acute (5) Uncomplicated sedative, hypnotic, or anxiolytic withdrawal Current Visit: Yes Status: Acute (6) Hepatitis C Current Visit: Yes Status: Chronic Qualifiers: Viral hepatitis chronicity: chronic Hepatic coma status: without hepatic coma Qualified Code(s): B18.2 - Chronic viral hepatitis C (7) Methadone maintenance therapy patient Current Visit: Yes Status: Chronic - AMA Did Patient Leave Against Medical Advice: No
== END 2016-12-02 09:06 | disposition home or self-care (01) | DRG 773 ==
LOC: YASAS 16:13 → Y3N 20:02
PROVIDERS: ADMIT Internal Medicine; ATTEND Internal Medicine
PROC: HZ2ZZZZ Detoxification Services for Substance Abuse Treatment (ICD-10-PCS; principal; 2016-11-28)
DX: F10.230 Alcohol dependence with withdrawal, uncomplicated (principal); F11.20 Opioid dependence, uncomplicated; F14.20 Cocaine dependence, uncomplicated; F17.213 Nicotine dependence, cigarettes, with withdrawal; F19.24 Other psychoactive substance dependence with psychoactive substance-induced mood disorder; F31.9 Bipolar disorder, unspecified; B18.2 Chronic viral hepatitis C; J45.32 Mild persistent asthma with status asthmaticus; E66.9 Obesity, unspecified; Z68.27 Body mass index [BMI] 27.0-27.9, adult; S60.511S Abrasion of right hand, sequela; X58.XXXS Exposure to other specified factors, sequela
CPT/HCPCS: 36415; 80053; 81003; 81015; 85027; 86593; 93005; 93010

== ENCOUNTER 2017-03-26 15:50 | Inpatient (IN) | payer OTHER ==
[2017-03-26 18:31] VITALS: BMI 29.5
--- NOTE | 2017-03-26 20:50 | HP ---
CIWA Score - CIWA Score Nausea/Vomitin Muscle Tremors: 4-Moderate,w/Arms Extend Anxiety: 6 Agitation: 6 Paroxysmal Sweats: 3 Orientation: 0-Oriented Tacttile Disturbances: 3-Moderate Itch/Numb/Burn Auditory Disturbances: 0-None Visual Disturbances: 0-None Headache: 3-Moderate CIWA-Ar Total Score: 28 Admission ROS BHS - HPI Chief Complaint: C/O WITHDRAWAL SX'S SEEKING DETOX. Allergies/Adverse Reactions: Allergies Allergy/AdvReac Type Severity Reaction Status Date / Time No Known Allergies Allergy Verified 03/26/17 19:40 History of Present Illness: 37 Y.O. MALE WITH POLYSUBSTANCE ABUSE ADMITTED TO DETOX. CLIENT IS PRESENTLY ON MMTP; [place] LDM TODAY METHAODNE 150 MG. HE IS KNOWN TO [facility]. REPORTS LONGEST CLEAN TIME 5 YEARS. SELF REFERRED Exam Limitations: Intoxication - Ebola screening Have you traveled outside of the country in the last 21 days: No Have you had contact with anyone from an Ebola affected area: No Have you been sick,other than usual withdrawal symptoms: No Do you have a fever: No - Review of Systems Constitutional: Chills, Loss of Appetite, Malaise, Night Sweats, Unintentional Wgt. Loss EENT: reports: Dental Problems (MISSING TEETH) Respiratory: reports: No Symptoms reported Cardiac: reports: No Symptoms Reported GI: reports: Diarrhea, Nausea : reports: No Symptoms Reported Musculoskeletal: reports: Back Pain Integumentary: reports: No Symptoms Reported Neuro: reports: No Symptoms reported Endocrine: reports: No Symptoms Reported Hematology: reports: No Symptoms Reported Psychiatric: reports: Agitated, Anxious, Depressed Other Systems: Reviewed and Negative Patient History - Patient Medical History Hx Anemia: No Hx Asthma: No Hx Chronic Obstructive Pulmonary Disease (COPD): No Hx Cancer: No Hx Cardiac Disorders: No Hx Congestive Heart Failure: No Hx Hypertension: No Hx Hypercholesterolemia: No Hx Pacemaker: No HX Cerebrovascular Accident: No Hx Seizures: No Hx Dementia: No Hx Diabetes: No Hx Gastrointestinal Disorders: No Hx Liver Disease: Yes Hx Genitourinary Disorders: No Hx Sexually Transmitted Disorders: No Hx Renal Disease (ESRD): No Hx Thyroid Disease: No Hx Human Immunodeficiency Virus (HIV): No Hx Hepatitis C: Yes (TREATED) Hx Depression: Yes Hx Suicide Attempt: No Hx Bipolar Disorder: Yes (EFFEXOR) Hx Schizophrenia: No - Patient Surgical History Past Surgical History: No Hx Neurologic Surgery: No Hx Cataract Extraction: No Hx Cardiac Surgery: No Hx Lung Surgery: No Hx Breast Surgery: No Hx Breast Biopsy: No Hx Abdominal Surgery: No Hx Appendectomy: No Hx Cholecystectomy: No Hx Genitourinary Surgery: No Hx Section: No Hx Orthopedic Surgery: No Anesthesia Reaction: No - PPD History Previous Implant?: Yes Implanted On Prior [facility] Admission?: Yes Date: 11/30/16 Results: 0 mm PPD to be Administered?: No - Smoking Cessation Smoking history: Current every day smoker Have you smoked in the past 12 months: Yes Aproximately how many cigarettes per day: 20 Cigars Per Day: 0 Hx Chewing Tobacco Use: No Initiated information on smoking cessation: Yes 'Breaking Loose' booklet given: 03/26/17 - Substances Abused Alcohol Route: Oral Frequency: Daily Amount used: beer 12 of 24 oz, vodka 2 pints Age of first use: 17 Date of Last Use: 03/26/17 Cocaine Route: Injection Frequency: Daily Amount used: 15 bags Age of first use: 17 Date of Last Use: 03/26/17 Family Disease History - Family Disease History Family Disease History: Diabetes: Father (ALCOHOLIC), Mother, Heart Disease: Father, Other: Father Admission Physical Exam S - Vital Signs Vital Signs: Vital Signs - 24 hr 03/26/17 18:27 Temperature 98.0 F Pulse Rate 91 H Respiratory 18 Rate Blood Pressure 142/74 - Physical General Appearance: Yes: Appropriately Dressed, Moderate Distress, Intoxicated, Tremorous, Irritable, Sweating, Anxious HEENTM: Yes: EOMI, Normocephalic, Pharynx Normal, Other (MISSING TEETH) Respiratory: Yes: Chest Non-Tender, Lungs Clear, Normal Breath Sounds, No Respiratory Distress, No Accessory Muscle Use Neck: Yes: No masses,lesions,Nodules, Supple, Trachea in good position Breast: Yes: Breast Exam Deferred Cardiology: Yes: Regular Rhythm, S1, S2, Tachycardia Abdominal: Yes: Normal Bowel Sounds, Non Tender, Soft Genitourinary: Yes: Within Normal Limits Back: Yes: Normal Inspection Musculoskeletal: Yes: full range of Motion, Gait Steady Extremities: Yes: Normal Capillary Refill, Normal Range of Motion, Non-Tender, Tremors Neurological: Yes: Fully Oriented, Alert, Motor Strength 5/5 Integumentary: Yes: Warm, Erythema (R FOREAERM INJECTION SITE), Moist, Track [place] (ALL ARMS AND LEGS), Other (R FOREARM CELLULITIS DUE TO INJECTING. AREA IS HOT RED AND HARD TO TOUCH) Lymphatic: Yes: Within Normal Limits - Diagnostic (1) Alcohol dependence with uncomplicated withdrawal Current Visit: Yes Status: Chronic (2) Cocaine dependence with withdrawal Current Visit: Yes Status: Chronic (3) Nicotine dependence Current Visit: Yes Status: Chronic Qualifiers: Nicotine product type: cigarettes Substance use status: in withdrawal Qualified Code(s): F17.213 - Nicotine dependence, cigarettes, with withdrawal (4) Opioid dependence on agonist therapy Current Visit: Yes Status: Chronic Comment: MMTP 150 MG DAILY PENDING VERIFICATION (5) Asthma Current Visit: Yes Status: Chronic Qualifiers: Asthma severity: mild persistent Asthma complication type: uncomplicated Qualified Code(s): J45.30 - Mild persistent asthma, uncomplicated (6) Hepatitis C Current Visit: Yes Status: Chronic Qualifiers: Viral hepatitis chronicity: unspecified Hepatic coma status: without hepatic coma Qualified Code(s): B19.20 - Unspecified viral hepatitis C without hepatic coma (7) Methadone maintenance therapy patient Current Visit: Yes Status: Chronic Comment: 150 mg verification pending (8) Cellulitis Current Visit: Yes Status: Acute Qualifiers: Site of cellulitis: other site Qualified Code(s): L03.818 - Cellulitis of other sites Cleared for Admission BHS - Detox or Rehab [facility] Level of Care: Medically Managed Detox Regimen/Protocol: Librium [facility] Breath Alcohol Content Breath Alcohol Content: 0.167 Urine Drug Screen - Results Drug Screen Negative: No Urine Drug Screen Results: AV-Cocaine, OPI-Opiates, MTD-Methadone
[2017-03-26] MEDS ORDERED: diphenhydrAMINE HCL 50 MG CAPSULE PO PRN (20:59)
[2017-03-26] MEDS ORDERED: MAGNESIUM CITRATE 300 ML BOTTLE PO PRN (20:59)
[2017-03-26] MEDS ORDERED: LOPERAMIDE HCL 2 MG CAPSULE PO PRN (20:59)
[2017-03-26] MEDS ORDERED: MAGNESIUM HYDROX 2400MG/30ML ORAL SUSPENSION 30 ML CUP PO PRN (20:59)
[2017-03-26] MEDS ORDERED: hydrOXYzine PAMOATE 50 MG CAPSULE (FP) PO PRN (20:59)
[2017-03-26] MEDS ORDERED: NICOTINE POLACRILEX 2 MG GUM BC PRN (20:59)
[2017-03-26] MEDS ORDERED: MENTHOL/PHENOL 1 EACH UD MM PRN (20:59)
[2017-03-26] MEDS ORDERED: P-EPHED 60MG/TRIPROLIDI 2.5MG TABLET PO PRN (20:59)
[2017-03-26] MEDS ORDERED: MAG HYDROX/AL HYDROX/SIMETH 30 ML UNIT-DOSE CUP PO PRN (20:59)
[2017-03-26] MEDS ORDERED: guaiFENesin/D-METHORPHAN HB 10 ML UNIT-DOSE CUPS PO PRN (20:59)
[2017-03-26] MEDS: chlordiazePOXIDE HCL 25 MG CAPSULE PO SCH (22:34)
[2017-03-26] MEDS: THIAMINE HCL 100 MG TABLET (FP) PO SCH (22:34)
[2017-03-26] MEDS: NICOTINE 21 MG/24 HOURS TOPICAL PATCH TD SCH (22:35)
[2017-03-26] MEDS: CEPHALEXIN MONOHYDRATE 500 MG CAPSULE (UD) PO SCH (23:08)
[2017-03-26 23:32] LABS: URINE APPEARANCE CLEAR; URINE BILIRUBIN NEGATIVE (NEGATIVE); URINE BLOOD NEGATIVE (NEGATIVE); URINE COLOR LTYELLOW; URINE GLUCOSE (UA) NEGATIVE (NEGATIVE); URINE KETONE NEGATIVE (NEGATIVE); URINE LEUK ESTERASE NEGATIVE (NEGATIVE); URINE NITRITE NEGATIVE (NEGATIVE); URINE PROTEIN NEGATIVE (NEGATIVE); URINE UROBILINOGEN NEGATIVE mg/dL (0.2-1.0)
[2017-03-27] MEDS: chlordiazePOXIDE HCL 25 MG CAPSULE PO SCH ×4 (05:49→22:26)
[2017-03-27] MEDS: CEPHALEXIN MONOHYDRATE 500 MG CAPSULE (UD) PO SCH ×4 (05:49→23:28)
[2017-03-27] MEDS ORDERED: METHADONE HCL 10 MG TABLET PO ONE (08:46)
[2017-03-27] MEDS ORDERED: METHADONE 120 MG, METHADONE 30 MG PO ONE (09:00)
[2017-03-27] MEDS ORDERED: METHADONE HCL 10 MG TABLET ONE (09:15)
[2017-03-27] MEDS ORDERED: METHADONE HCL 40 MG DISPERSABLE TABLET ONE (09:16)
[2017-03-27 09:56] LABS: MCH 27.1 pg (25.7-33.7); MCHC 32.7 g/dl (32.0-35.9); MEAN CELL VOLUME 82.9 fl (80-96); MEAN PLT VOLUME 8.5 fl (7.5-11.1); PLATELET COUNT 188 K/MM3 (134-434); RDW 15.5 % (11.9-15.9); WHITE BLOOD COUNT 6.4 K/mm3 (4.0-10.0)
[2017-03-27 09:57] LABS: ALBUMIN 2.8 g/dl (3.4-5.0); ANION GAP 6 (8-16); BILIRUBIN,TOTAL 0.6 mg/dL (0.2-1.0); CALCIUM 8.6 mg/dL (8.5-10.1); CO2 30 mmol/L (21-32); CREATININE 0.7 mg/dL (0.7-1.3); GLUCOSE,RANDOM 106 mg/dL (74-106); SGOT/AST 17 U/L (15-37); SGPT/ALT 18 U/L (12-78); TOT PROT 6.6 g/dl (6.4-8.2)
[2017-03-27 09:58] LABS: ALK PHOS 103 U/L (45-117)
[2017-03-27] MEDS: PRENATAL VITAMINS W/ FOLIC ACID TABLET (FP) PO SCH (10:36)
[2017-03-27] MEDS: NICOTINE 21 MG/24 HOURS TOPICAL PATCH TD SCH (10:37)
[2017-03-27 11:22] LABS: HIV 1 & 2 AB NEGATIVE; HIV 1 AGp24 NEGATIVE
--- NOTE | 2017-03-27 11:45 | PN ---
[facility] CIWA - CIWA Score Nausea/Vomitin-Mild Nausea/No Vomiting Muscle Tremors: 5 Anxiety: 5 Agitation: 4-Moderately Restless Paroxysmal Sweats: 1-Minimal Palms Moist Orientation: 0-Oriented Tacttile Disturbances: 3-Moderate Itch/Numb/Burn Auditory Disturbances: 0-None Visual Disturbances: 0-None Headache: 0-None Present CIWA-Ar Total Score: 19 S Progress Note (SOAP) Subjective: IRRITABILITY,SWEATS, AGITATION,TREMORS,ANGRY,FATIGUE. Objective: 03/27/17 11:44 Vital Signs Temperature 96.5 F L 03/27/17 09:14 Pulse Rate 71 03/27/17 09:14 Respiratory Rate 18 03/27/17 09:14 Blood Pressure 118/73 03/27/17 09:14 O2 Sat by Pulse Oximetry (%) Laboratory Last Values WBC 6.4 K/mm3 (4.0-10.0) D 03/27/17 07:00 RBC 4.66 M/mm3 (4.00-5.60) 03/27/17 07:00 Hgb 12.7 GM/dL (11.7-16.9) 03/27/17 07:00 Hct 38.6 % (35.4-49) 03/27/17 07:00 MCV 82.9 fl (80-96) 03/27/17 07:00 MCH 27.1 pg (25.7-33.7) 03/27/17 07:00 MCHC 32.7 g/dl (32.0-35.9) 03/27/17 07:00 RDW 15.5 % (11.9-15.9) 03/27/17 07:00 Plt Count 188 K/MM3 (134-434) 03/27/17 07:00 MPV 8.5 fl (7.5-11.1) 03/27/17 07:00 Sodium 140 mmol/L (136-145) 03/27/17 07:00 Potassium 4.3 mmol/L (3.5-5.1) 03/27/17 07:00 Chloride 104 mmol/L (98-107) 03/27/17 07:00 Carbon Dioxide 30 mmol/L (21-32) 03/27/17 07:00 Anion Gap 6 (8-16) L 03/27/17 07:00 BUN 15 mg/dL (7-18) 03/27/17 07:00 Creatinine 0.7 mg/dL (0.7-1.3) 03/27/17 07:00 Creat Clearance w eGFR > 60 (>60) 03/27/17 07:00 Random Glucose 106 mg/dL (74-106) 03/27/17 07:00 Calcium 8.6 mg/dL (8.5-10.1) 03/27/17 07:00 Total Bilirubin 0.6 mg/dL (0.2-1.0) D 03/27/17 07:00 AST 17 U/L (15-37) 03/27/17 07:00 ALT 18 U/L (12-78) 03/27/17 07:00 Alkaline Phosphatase 103 U/L (45-117) 03/27/17 07:00 Total Protein 6.6 g/dl (6.4-8.2) 03/27/17 07:00 Albumin 2.8 g/dl (3.4-5.0) L 03/27/17 07:00 Urine Color Ltyellow 03/26/17 23:10 Urine Appearance Clear 03/26/17 23:10 Urine pH 6.0 (5.0-8.0) 03/26/17 23:10 Ur Specific [place] 1.010 (1.005-1.025) 03/26/17 23:10 Urine Protein Negative (NEGATIVE) 03/26/17 23:10 Urine Glucose (UA) Negative (NEGATIVE) 03/26/17 23:10 Urine Ketones Negative (NEGATIVE) 03/26/17 23:10 Urine Blood Negative (NEGATIVE) 03/26/17 23:10 Urine Nitrite Negative (NEGATIVE) 03/26/17 23:10 Urine Bilirubin Negative (NEGATIVE) 03/26/17 23:10 Urine Urobilinogen Negative mg/dL (0.2-1.0) 03/26/17 23:10 RPR Titer Nonreactive (NONREACTIVE) 03/27/17 07:00 HIV 1&2 Antibody Screen Negative 03/27/17 07:00 HIV P24 Antigen Negative 03/27/17 07:00 Assessment: 03/27/17 11:45 WITHDRAWAL SX Plan: CONTINUE DETOX
[2017-03-27] MEDS: chlordiazePOXIDE HCL 25 MG CAPSULE PO PRN ×2 (13:57→19:50)
--- NOTE | 2017-03-27 16:06 | CONSULT ---
[facility] Psychiatric Consult - Data Date of interview: 03/27/17 Admission source: [facility] Identifying data: This is 37 years old single H male,father of 2,resides alone, supported by PA. Substance Abuse History: Reports drinking since 17 yo,cocaine since 17 yo about bags daily injection,heroin since 17 yo,10 nags daily. Medical History: Hep C,BA,Obesity. Psychiatric History: Patient being dx with Bipolar disorder a few years ago, reports 2 psychiatric admissions in [place].Sees psychiatrist at [facility].Current medications:Abilify 10 mg po daily and Effexor XR 150 mg po daily and Ambien 10 mg po hs. Physical/Sexual Abuse/Trauma History: denies Mental Status Exam - Mental Status Exam Alert and Oriented to: Time, Place, Person Cognitive Function: Grossly Intact Patient Appearance: Unkempt Mood: Nervous, Anxious Affect: Mood Congruent, Labile Patient Behavior: Appropriate, Cooperative Speech Pattern: Clear Voice Loudness: Normal Thought Process: Goal Oriented Hallucinations: Denies Suicidal Ideation: Denies Homicidal Ideation: Denies Insight/Judgement: Fair Sleep: Difficulty falling asleep Appetite: Fair Muscle strength/Tone: Normal Gait/Station: Normal Psychiatric Findings - Problem List ([place] 1, 2,3) (1) Alcohol dependence with uncomplicated withdrawal Current Visit: Yes Status: Chronic (2) Cocaine dependence with withdrawal Current Visit: Yes Status: Chronic (3) Nicotine dependence Current Visit: Yes Status: Chronic Qualifiers: Nicotine product type: cigarettes Substance use status: in withdrawal Qualified Code(s): F17.213 - Nicotine dependence, cigarettes, with withdrawal (4) Asthma Current Visit: Yes Status: Chronic Qualifiers: Asthma severity: mild intermittent Asthma complication type: uncomplicated Qualified Code(s): J45.20 - Mild intermittent asthma, uncomplicated (5) Hepatitis C Current Visit: Yes Status: Chronic Qualifiers: Viral hepatitis chronicity: unspecified Hepatic coma status: without hepatic coma Qualified Code(s): B19.20 - Unspecified viral hepatitis C without hepatic coma (6) Methadone maintenance therapy patient Current Visit: Yes Status: Chronic Comment: 150 mg verification pending (7) Obesity Current Visit: Yes Status: Chronic Qualifiers: Obesity type: unspecified obesity type (8) Bipolar disorder Current Visit: Yes Status: Chronic Qualifiers: Active/Remission status: currently active Current episode severity: unspecified Comment: History. - Initial Treatment Plan Initial Treatment Plan: Effexor XR 75 mg po daily,Ambien 10 mg po hs ,Abilify 10 mg po hs. Will monitor progress.
[2017-03-27] MEDS: ARIPiprazole 10 MG TABLET PO SCH (17:08)
[2017-03-27] MEDS: IBUPROFEN 400 MG TABLET (FP) PO PRN (19:48)
--- NOTE | 2017-03-27 22:26 | EKG ---
Test Reason : Blood Pressure : / mmHG Vent. Rate : 095 BPM Atrial Rate : 095 BPM P-R Int : 124 ms QRS Dur : 082 ms QT Int : 348 ms P-R-T Axes : 042 071 031 degrees QTc Int : 437 ms NORMAL SINUS RHYTHM NONSPECIFIC ST ABNORMALITIES WHEN COMPARED WITH ECG OF 28-NOV-2016 20:27, NO SIGNIFICANT CHANGE WAS FOUND Confirmed by JUICE SEAMAN MD ([id number]) on 03/27/2017 10:25:58 PM Referred By: Confirmed By:JUICE SEAMAN MD
[2017-03-27] MEDS: THIAMINE HCL 100 MG TABLET (FP) PO SCH (22:27)
[2017-03-27] MEDS: ZOLPIDEM TARTRATE 10 MG TABLET (PARK CARE ONLY) PO PRN (22:27)
[2017-03-28] MEDS ORDERED: METHADONE HCL 10 MG TABLET ONE (04:06)
[2017-03-28] MEDS ORDERED: METHADONE HCL 40 MG DISPERSABLE TABLET ONE (04:07)
[2017-03-28] MEDS: chlordiazePOXIDE HCL 25 MG CAPSULE PO SCH ×3 (05:44→17:08)
[2017-03-28] MEDS: CEPHALEXIN MONOHYDRATE 500 MG CAPSULE (UD) PO SCH ×4 (05:44→23:04)
[2017-03-28] MEDS: METHADONE 120 MG, METHADONE 30 MG PO SCH (05:45)
[2017-03-28] MEDS ORDERED: METHADONE HCL 10 MG TABLET PO SCH (06:00)
[2017-03-28] MEDS: chlordiazePOXIDE HCL 25 MG CAPSULE PO PRN ×2 (08:58→19:52)
[2017-03-28] MEDS: VENLAFAXINE HCL 75 MG E.R. CAPSULES (FP) PO SCH (10:36)
[2017-03-28] MEDS: BACITRACIN 0.9 GM PACKET TP SCH ×2 (10:36→22:52)
[2017-03-28] MEDS: ARIPiprazole 10 MG TABLET PO SCH (10:36)
[2017-03-28] MEDS: PRENATAL VITAMINS W/ FOLIC ACID TABLET (FP) PO SCH (10:37)
[2017-03-28] MEDS: NICOTINE 21 MG/24 HOURS TOPICAL PATCH TD SCH (10:37)
--- NOTE | 2017-03-28 12:45 | PN ---
[facility] CIWA - CIWA Score Nausea/Vomitin-No Nausea/No Vomiting Muscle Tremors: 4-Moderate,w/Arms Extend Anxiety: 4-Mod. Anxious/Guarded Agitation: 4-Moderately Restless Paroxysmal Sweats: 1-Minimal Palms Moist Orientation: 0-Oriented Tacttile Disturbances: 3-Moderate Itch/Numb/Burn Auditory Disturbances: 0-None Visual Disturbances: 0-None Headache: 0-None Present CIWA-Ar Total Score: 16 BHS Progress Note (SOAP) Subjective: ANXIETY,SWEATS,IRRITABILITY, INTERMITTENT SLEEP. Objective: 03/28/17 12:44 Vital Signs Temperature 95.9 F L 03/28/17 09:31 Pulse Rate 63 03/28/17 09:31 Respiratory Rate 18 03/28/17 09:31 Blood Pressure 134/78 03/28/17 09:31 O2 Sat by Pulse Oximetry (%) Laboratory Last Values WBC 6.4 K/mm3 (4.0-10.0) D 03/27/17 07:00 RBC 4.66 M/mm3 (4.00-5.60) 03/27/17 07:00 Hgb 12.7 GM/dL (11.7-16.9) 03/27/17 07:00 Hct 38.6 % (35.4-49) 03/27/17 07:00 MCV 82.9 fl (80-96) 03/27/17 07:00 MCH 27.1 pg (25.7-33.7) 03/27/17 07:00 MCHC 32.7 g/dl (32.0-35.9) 03/27/17 07:00 RDW 15.5 % (11.9-15.9) 03/27/17 07:00 Plt Count 188 K/MM3 (134-434) 03/27/17 07:00 MPV 8.5 fl (7.5-11.1) 03/27/17 07:00 Sodium 140 mmol/L (136-145) 03/27/17 07:00 Potassium 4.3 mmol/L (3.5-5.1) 03/27/17 07:00 Chloride 104 mmol/L (98-107) 03/27/17 07:00 Carbon Dioxide 30 mmol/L (21-32) 03/27/17 07:00 Anion Gap 6 (8-16) L 03/27/17 07:00 BUN 15 mg/dL (7-18) 03/27/17 07:00 Creatinine 0.7 mg/dL (0.7-1.3) 03/27/17 07:00 Creat Clearance w eGFR > 60 (>60) 03/27/17 07:00 Random Glucose 106 mg/dL (74-106) 03/27/17 07:00 Calcium 8.6 mg/dL (8.5-10.1) 03/27/17 07:00 Total Bilirubin 0.6 mg/dL (0.2-1.0) D 03/27/17 07:00 AST 17 U/L (15-37) 03/27/17 07:00 ALT 18 U/L (12-78) 03/27/17 07:00 Alkaline Phosphatase 103 U/L (45-117) 03/27/17 07:00 Total Protein 6.6 g/dl (6.4-8.2) 03/27/17 07:00 Albumin 2.8 g/dl (3.4-5.0) L 03/27/17 07:00 Urine Color Ltyellow 03/26/17 23:10 Urine Appearance Clear 03/26/17 23:10 Urine pH 6.0 (5.0-8.0) 03/26/17 23:10 Ur Specific [place] 1.010 (1.005-1.025) 03/26/17 23:10 Urine Protein Negative (NEGATIVE) 03/26/17 23:10 Urine Glucose (UA) Negative (NEGATIVE) 03/26/17 23:10 Urine Ketones Negative (NEGATIVE) 03/26/17 23:10 Urine Blood Negative (NEGATIVE) 03/26/17 23:10 Urine Nitrite Negative (NEGATIVE) 03/26/17 23:10 Urine Bilirubin Negative (NEGATIVE) 03/26/17 23:10 Urine Urobilinogen Negative mg/dL (0.2-1.0) 03/26/17 23:10 RPR Titer Nonreactive (NONREACTIVE) 03/27/17 07:00 Hepatitis C Antibody >11.0 s/co ratio (0.0-0.9) H 03/26/17 07:00 HIV 1&2 Antibody Screen Negative 03/27/17 07:00 HIV P24 Antigen Negative 03/27/17 07:00 PT HAS PREVIOUS HX HEP C TREATMENT. Assessment: 03/28/17 12:45 WITHDRAWAL SX Plan: CONTINUE DETOX
[2017-03-28] MEDS: IBUPROFEN 400 MG TABLET (FP) PO PRN (17:40)
[2017-03-28] MEDS: chlordiazePOXIDE 5 MG CAPSULE PO SCH (22:52)
[2017-03-28] MEDS: ZOLPIDEM TARTRATE 10 MG TABLET (PARK CARE ONLY) PO PRN (22:52)
[2017-03-28] MEDS: THIAMINE HCL 100 MG TABLET (FP) PO SCH (22:53)
[2017-03-29] MEDS ORDERED: METHADONE HCL 10 MG TABLET ONE (02:56)
[2017-03-29] MEDS ORDERED: METHADONE HCL 40 MG DISPERSABLE TABLET ONE (02:57)
[2017-03-29] MEDS: CEPHALEXIN MONOHYDRATE 500 MG CAPSULE (UD) PO SCH ×2 (05:37→12:51)
[2017-03-29] MEDS: chlordiazePOXIDE 5 MG CAPSULE PO SCH ×2 (05:37→12:02)
[2017-03-29] MEDS: METHADONE 120 MG, METHADONE 30 MG PO SCH (05:37)
[2017-03-29] MEDS: ACETAMINOPHEN 325 MG TABLET (FP) PO PRN ×2 (05:38→11:58)
[2017-03-29] MEDS: chlordiazePOXIDE HCL 25 MG CAPSULE PO PRN (09:23)
[2017-03-29] MEDS: VENLAFAXINE HCL 75 MG E.R. CAPSULES (FP) PO SCH (09:24)
[2017-03-29] MEDS: PRENATAL VITAMINS W/ FOLIC ACID TABLET (FP) PO SCH (09:24)
[2017-03-29] MEDS: BACITRACIN 0.9 GM PACKET TP SCH (09:24)
[2017-03-29] MEDS: NICOTINE 21 MG/24 HOURS TOPICAL PATCH TD SCH (09:25)
[2017-03-29] MEDS: ARIPiprazole 10 MG TABLET PO SCH (09:25)
[2017-03-29 09:50] VITALS: BP 112/72; PULSE 67; TEMP 96.8
--- NOTE | 2017-03-29 14:11 | DS ---
[facility] Detox Discharge Summary Admission Date: 03/26/17 Discharge Date: 03/29/17 - History Present History: Alcohol Dependence, MMTP Additional Comments: PT DISCHARGED TO [facility] TODA7. ALERT O X 3. NAD. Pertinent Past History: HEP C OBESITY ASTHMA - Physical Exam Results Vital Signs: Vital Signs Temperature 96.8 F L 03/29/17 09:50 Pulse Rate 67 03/29/17 09:50 Respiratory Rate 20 03/29/17 09:50 Blood Pressure 112/72 03/29/17 09:50 O2 Sat by Pulse Oximetry (%) Pertinent Admission Physical Exam Findings: CELLULITIS LOWER LEGS - Treatment Hospital Course: Detox Protocol Followed, Detoxed Safely, Responded well, Discharged Condition Good, Rehab Referral Accepted Patient has Accepted a Rehab Referral to: [facility] - Medication Discharge Medications: Ambulatory Orders Zolpidem Tartrate [Ambien] 10 mg PO HS 09/30/15 Aripiprazole [Abilify -] 10 mg PO DAILY #30 tablet 10/01/15 Venlafaxine HCl ER [Effexor Xr -] 75 mg PO DAILY #30 cap.er.24h 10/01/15 Aripiprazole [Abilify -] 10 mg PO DAILY #30 tablet 03/27/17 Venlafaxine HCl ER [Effexor Xr -] 75 mg PO DAILY #30 cap 03/27/17 - Diagnosis (1) Alcohol dependence with uncomplicated withdrawal Status: Acute (2) Asthma Status: Chronic Qualifiers: Qualified Code(s): J45.20 - Mild intermittent asthma, uncomplicated (3) Cocaine dependence with withdrawal Status: Acute (4) Hepatitis C Status: Chronic Qualifiers: Qualified Code(s): B19.20 - Unspecified viral hepatitis C without hepatic coma (5) Methadone maintenance therapy patient Status: Chronic (6) Nicotine dependence Status: Chronic Qualifiers: Qualified Code(s): F17.213 - Nicotine dependence, cigarettes, with withdrawal (7) Obesity Status: Chronic (8) Cellulitis Status: Acute Qualifiers: Qualified Code(s): L03.818 - Cellulitis of other sites - AMA Did Patient Leave Against Medical Advice: No
[2017-03-29] MEDS ORDERED: chlordiazePOXIDE HCL 10 MG CAPSULE PO SCH ×2 (17:00→23:00)
== END 2017-03-29 12:56 | disposition other institution (70) | DRG 773 ==
LOC: YASAS 15:50 → Y3N 20:28
PROVIDERS: ADMIT Internal Medicine; ATTEND Internal Medicine
PROC: HZ2ZZZZ Detoxification Services for Substance Abuse Treatment (ICD-10-PCS; principal; 2017-03-26)
PROC: HZ2ZZZZ Detoxification Services for Substance Abuse Treatment (ICD-10-PCS; 2017-03-26)
DX: F11.20 Opioid dependence, uncomplicated (principal); F10.230 Alcohol dependence with withdrawal, uncomplicated; F14.23 Cocaine dependence with withdrawal; F17.213 Nicotine dependence, cigarettes, with withdrawal; F31.9 Bipolar disorder, unspecified; L03.116 Cellulitis of left lower limb; L03.115 Cellulitis of right lower limb; J45.20 Mild intermittent asthma, uncomplicated; B19.20 Unspecified viral hepatitis C without hepatic coma; E66.9 Obesity, unspecified; Z68.29 Body mass index [BMI] 29.0-29.9, adult
CPT/HCPCS: 36415; 80053; 81003; 85027; 86593; 86803; 87389; 87522; 93005; 93010

== ENCOUNTER 2017-03-29 13:33 | Inpatient (IN) | payer OTHER ==
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
[2017-03-29] MEDS ORDERED: guaiFENesin/D-METHORPHAN HB 10 ML UNIT-DOSE CUPS PO PRN (15:03)
[2017-03-29] MEDS ORDERED: NICOTINE POLACRILEX 2 MG GUM BUC PRN (15:03)
[2017-03-29] MEDS ORDERED: MAGNESIUM HYDROX 2400MG/30ML ORAL SUSPENSION 30 ML CUP PO PRN (15:03)
[2017-03-29] MEDS ORDERED: MAGNESIUM CITRATE 300 ML BOTTLE PO PRN (15:03)
[2017-03-29] MEDS ORDERED: MAG HYDROX/AL HYDROX/SIMETH 30 ML UNIT-DOSE CUP PO PRN (15:03)
[2017-03-29] MEDS ORDERED: LOPERAMIDE HCL 2 MG CAPSULE PO PRN (15:03)
[2017-03-29] MEDS ORDERED: diphenhydrAMINE HCL 50 MG CAPSULE PO PRN (15:03)
[2017-03-29] MEDS ORDERED: hydrOXYzine PAMOATE 50 MG CAPSULE (FP) PO PRN (15:03)
[2017-03-29] MEDS ORDERED: P-EPHED 60MG/TRIPROLIDI 2.5MG TABLET PO PRN (15:03)
[2017-03-29] MEDS ORDERED: IBUPROFEN 400 MG TABLET (FP) PO PRN (15:03)
[2017-03-29] MEDS ORDERED: MENTHOL/PHENOL 1 EACH UD MM PRN (15:03)
--- NOTE | 2017-03-29 15:03 | HP ---
[facility] Rehab Assess/Revision - Admission History [facility] Date of Admission to Rehab: 03/29/2017 - Vital signs Vital Signs: VSS reviewed - Findings Detox History & Physical reviewed: Yes Concur with findings: Yes Comments/Additional Findings: methadone dose verified and ordered as requested to start tomorrow. Inpatient Rehab Admission - Initial Determination Are CD services needed?: Yes Free of communicable disease: Yes Not in need of hospitalization: Yes - Rehab Admission Criteria Comorbidities: Yes Patient is meeting Inpatient Rehab admission criteria:: Yes
[2017-03-29] MEDS: THIAMINE HCL 100 MG TABLET (FP) PO SCH (20:59)
[2017-03-29] MEDS: SUVOREXANT 10 MG TABLET PO PRN (21:01)
[2017-03-30] MEDS ORDERED: METHADONE HCL 10 MG TABLET ONE (04:55)
[2017-03-30] MEDS ORDERED: METHADONE HCL 40 MG DISPERSABLE TABLET ONE (04:55)
[2017-03-30] MEDS ORDERED: METHADONE HCL 10 MG TABLET PO SCH (06:00)
[2017-03-30] MEDS: METHADONE 120 MG, METHADONE 30 MG PO SCH (06:11)
[2017-03-30] MEDS: ACETAMINOPHEN 325 MG TABLET (FP) PO PRN ×2 (06:14→20:47)
[2017-03-30] MEDS: NICOTINE 14 MG/24 HOURS TOPICAL PATCH TD SCH (09:54)
[2017-03-30] MEDS: ARIPiprazole 10 MG TABLET PO SCH (09:54)
[2017-03-30] MEDS: VENLAFAXINE HCL 150 MG E.R. CAPSULE PO SCH (09:54)
[2017-03-30] MEDS: PRENATAL VITAMINS W/ FOLIC ACID TABLET (FP) PO SCH (09:54)
[2017-03-30] MEDS: BACITRACIN 0.9 GM PACKET TP SCH (14:47)
[2017-03-30] MEDS: CEPHALEXIN MONOHYDRATE 500 MG CAPSULE (UD) PO SCH ×2 (18:08→23:07)
[2017-03-30] MEDS: SUVOREXANT 10 MG TABLET PO PRN (20:32)
[2017-03-30] MEDS: THIAMINE HCL 100 MG TABLET (FP) PO SCH (21:04)
[2017-03-31] MEDS ORDERED: METHADONE HCL 40 MG DISPERSABLE TABLET ONE (03:20)
[2017-03-31] MEDS ORDERED: METHADONE HCL 10 MG TABLET ONE (03:20)
[2017-03-31] MEDS: CEPHALEXIN MONOHYDRATE 500 MG CAPSULE (UD) PO SCH ×4 (06:21→23:19)
[2017-03-31] MEDS: METHADONE 120 MG, METHADONE 30 MG PO SCH (06:21)
[2017-03-31] MEDS: BACITRACIN 0.9 GM PACKET TP SCH (10:04)
[2017-03-31] MEDS: NICOTINE 14 MG/24 HOURS TOPICAL PATCH TD SCH (10:05)
[2017-03-31] MEDS: PRENATAL VITAMINS W/ FOLIC ACID TABLET (FP) PO SCH (10:05)
[2017-03-31] MEDS: VENLAFAXINE HCL 150 MG E.R. CAPSULE PO SCH (10:05)
[2017-03-31] MEDS: ARIPiprazole 10 MG TABLET PO SCH (10:05)
[2017-03-31] MEDS: THIAMINE HCL 100 MG TABLET (FP) PO SCH (21:05)
[2017-04-01] MEDS ORDERED: METHADONE HCL 40 MG DISPERSABLE TABLET ONE (03:54)
[2017-04-01] MEDS ORDERED: METHADONE HCL 10 MG TABLET ONE (03:54)
[2017-04-01] MEDS: CEPHALEXIN MONOHYDRATE 500 MG CAPSULE (UD) PO SCH ×2 (06:17→12:16)
[2017-04-01] MEDS: METHADONE 120 MG, METHADONE 30 MG PO SCH (06:17)
[2017-04-01 07:48] VITALS: BP 133/72; PULSE 63; TEMP 97.7
[2017-04-01] MEDS: NICOTINE 14 MG/24 HOURS TOPICAL PATCH TD SCH (10:25)
[2017-04-01] MEDS: VENLAFAXINE HCL 150 MG E.R. CAPSULE PO SCH (10:25)
[2017-04-01] MEDS: ARIPiprazole 10 MG TABLET PO SCH (10:25)
[2017-04-01] MEDS: PRENATAL VITAMINS W/ FOLIC ACID TABLET (FP) PO SCH (10:25)
[2017-04-01] MEDS: BACITRACIN 0.9 GM PACKET TP SCH (10:25)
== END 2017-04-01 12:20 | disposition left against medical advice (07) | DRG 770 ==
LOC: YASAS 13:33 → Y3W 13:34
PROVIDERS: ADMIT Psychiatry & Neurology Psychiatry; ATTEND Psychiatry & Neurology Psychiatry
PROC: HZ42ZZZ Group Counseling for Substance Abuse Treatment, Cognitive-Behavioral (ICD-10-PCS; principal; 2017-03-29)
DX: F11.20 Opioid dependence, uncomplicated (principal); F10.230 Alcohol dependence with withdrawal, uncomplicated; F14.20 Cocaine dependence, uncomplicated; F31.9 Bipolar disorder, unspecified; L03.818 Cellulitis of other sites; J45.20 Mild intermittent asthma, uncomplicated; B19.20 Unspecified viral hepatitis C without hepatic coma; E66.9 Obesity, unspecified; Z68.30 Body mass index [BMI] 30.0-30.9, adult

== ENCOUNTER 2018-10-16 15:02 | Inpatient (IN) | payer OTHER ==
[2018-10-16 18:07] VITALS: BMI 25.7
--- NOTE | 2018-10-16 18:43 | HP ---
COWS - Scale Resting Pulse: 1= [place] 81-100 Sweatin= Chills/Flushing Restless Observation: 1= Difficult to Sit Still Pupil Size: 1= Pupils >than Normal Bone or Joint Aches: 2= Severe Diffuse Aches Runny Nose/ Eye Tearin= Runny Nose/Eyes GI Upset > 30mins: 2= Nausea/Diarrhea Tremor Observation: 1= Tremor Portal, Not Seen Yawning Observation: 1= 1-2x During Session Anxiety or Irritability: 2=Irritable/Anxious Goose Flesh Skin: 3=Piloerection COWS Score: 17 CIWA Score Nausea/Vomitin Muscle Tremors: 3 Anxiety: 3 Agitation: 3 Paroxysmal Sweats: No Perspiration Orientation: 0-Oriented Tacttile Disturbances: 0-None Auditory Disturbances: 0-None Visual Disturbances: 0-None Headache: 1-Very Mild CIWA-Ar Total Score: 12 - Admission Criteria [facility]ASAS Guidelines: Admission for Medically Managed Detox: Requires at least one of the followin. CIWA greater than 12 2. Seizures within the past 24 hours 3. Delirium tremens within the past 24 hours 4. Hallucinations within the past 24 hours 5. Acute intervention needed for co occurring medical disorder 6. Acute intervention needed for co occurring psychiatric disorder 7. Severe withdrawal that cannot be handled at a lower level of care (continued vomiting, continued diarrhea, abnormal vital signs) requiring intravenous medication and/or fluids 8. Patient presents the following: CIWA greater than 12 Admission Criteria Met: Admission criteria met Admission [facility] Chief Complaint: heroin and alcohol detox 38 yo with HCV cured after treatment, uses heroin IV and cocaine IV and alcohol use. Left methadone treatment program about 3 months ago. Wants to go back on it. heroin IV- 20 bags/day, 1 gram/day: last use 3 bags yesterda- feels like he is in withdrawal. No h/o OD cocaine IV speedball- 1 gram/day alcohol- 3 6 pack a day- no seizures/DT's Utox- pos bryson, fen, MOP, BZO Allergies/Adverse Reactions: Allergies Allergy/AdvReac Type Severity Reaction Status Date / Time No Known Allergies Allergy Verified 10/16/18 17:53 - Ebola screening Have you traveled outside of the country in the last 21 days: No (N) Have you had contact with anyone from an Ebola affected area: No Do you have a fever: No Patient History - Patient Medical History Hx Anemia: No Hx Asthma: No Hx Chronic Obstructive Pulmonary Disease (COPD): No Hx Cancer: No Hx Cardiac Disorders: No Hx Congestive Heart Failure: No Hx Hypertension: No Hx Hypercholesterolemia: No Hx Pacemaker: No HX Cerebrovascular Accident: No Hx Seizures: No Hx Dementia: No Hx Diabetes: No Hx Gastrointestinal Disorders: No Hx Liver Disease: Yes Hx Genitourinary Disorders: No Hx Sexually Transmitted Disorders: No Hx Renal Disease (ESRD): No Hx Thyroid Disease: No Hx Human Immunodeficiency Virus (HIV): No Hx Hepatitis C: Yes (TREATED) Hx Depression: Yes Hx Suicide Attempt: No Hx Bipolar Disorder: Yes (EFFEXOR) Hx Schizophrenia: No - Patient Surgical History Past Surgical History: No Hx Neurologic Surgery: No Hx Cataract Extraction: No Hx Cardiac Surgery: No Hx Lung Surgery: No Hx Breast Surgery: No Hx Breast Biopsy: No Hx Abdominal Surgery: No Hx Appendectomy: No Hx Cholecystectomy: No Hx Genitourinary Surgery: No Hx Section: No Hx Orthopedic Surgery: No Anesthesia Reaction: No - PPD History Date: 11/30/16 Results: 0 mm - Smoking Cessation Smoking history: Current every day smoker Have you smoked in the past 12 months: Yes Aproximately how many cigarettes per day: 20 Cigars Per Day: 0 Hx Chewing Tobacco Use: No Initiated information on smoking cessation: Yes 'Breaking Loose' booklet given: 10/16/18 - Substance & Tx. History Substance Use Type: Alcohol, Cocaine, Heroin Hx Substance Use Treatment: No - Substances abused Heroin Substance route: Injection Frequency: Daily Amount used: 20 bags Age of first use: 17 Date of last use: 10/16/18 Cocaine Substance route: Injection Frequency: Daily Amount used: 20 bags Age of first use: 17 Date of last use: 10/16/18 Alcohol Substance route: Oral Frequency: Daily Amount used: maybe 3 or 6 packs/ 16 ounces Age of first use: 24 Date of last use: 10/16/18 Family Disease History - Family Disease History Family Disease History: Diabetes: Father (ALCOHOLIC), Mother, Heart Disease: Father, Other: Father Admission Physical Exam BHS - Vital Signs Vital Signs: Vital Signs - 24 hr 10/16/18 17:59 Temperature 98.6 F Pulse Rate 90 Respiratory 20 Rate Blood Pressure 131/63 - Physical General Appearance: Yes: Within Normal Limits HEENTM: Yes: Within Normal Limits Respiratory: Yes: Within Normal Limits, Lungs Clear Neck: Yes: Within Normal Limits, Other (track pierre) Cardiology: Yes: Within Normal Limits, Regular Rate, S1, S2 Abdominal: Yes: Within Normal Limits Back: Yes: Within Normal Limits Musculoskeletal: Yes: Within Normal Limits Extremities: Yes: Within Normal Limits, Other (track xie upper and lower extremeties, induration and 1+ swelling in of of monica lower legs, no pain on palpation or warmth to tough) Neurological: Yes: Within Normal Limits, tar heat exchanger cleaner II-XII NML intact, Fully Oriented Integumentary: Yes: Track Xie (with redness and swelling of lower extr- recent cocaine and heroin injection- no evidence of infection) - Diagnostic (1) Alcohol dependence with uncomplicated withdrawal Current Visit: No Status: Acute (2) Cocaine dependence Current Visit: No Status: Acute (3) Cocaine dependence with withdrawal Current Visit: No Status: Acute (4) Asthma Current Visit: No Status: Chronic Qualifiers: Asthma severity: mild intermittent Asthma complication type: uncomplicated (5) Nicotine dependence Current Visit: No Status: Chronic Qualifiers: Nicotine product type: cigarettes Substance use status: in withdrawal Qualified Code(s): F17.213 - Nicotine dependence, cigarettes, with withdrawal Breathalyzer - Breathalyzer Breathalyzer: 0.030 Urine Drug Screen - Results Drug screen NEGATIVE: Yes Urine drug screen results: BRYSON-Cocaine, FEN-Fentanyl, BZO-Benzodiazepines Inpatient Rehab Admission - Rehab Decision to Admit Inpatient rehab admission?: No
[2018-10-16] MEDS ORDERED: NICOTINE POLACRILEX 4 MG GUM BUC PRN (18:48)
[2018-10-16] MEDS ORDERED: cloNIDine HCL 0.1 MG TABLET PO PRN (18:48)
[2018-10-16] MEDS ORDERED: MAGNESIUM HYDROX 2400MG/30ML ORAL SUSPENSION 30 ML CUP PO PRN (18:48)
[2018-10-16] MEDS ORDERED: ACETAMINOPHEN 325 MG TABLET (FP) PO PRN ×2 (18:48)
[2018-10-16] MEDS ORDERED: BISMUTH SUBSALICYLATE 524 MG/30 ML UD PO PRN (18:48)
[2018-10-16] MEDS ORDERED: IBUPROFEN 400 MG TABLET (FP) PO PRN (18:48)
[2018-10-16] MEDS ORDERED: MAG HYDROX/AL HYDROX/SIMETH 30 ML UNIT-DOSE CUP PO PRN (18:48)
[2018-10-16] MEDS ORDERED: MENTHOL/PHENOL 1 EACH UD MM PRN (18:48)
[2018-10-16] MEDS ORDERED: MELATONIN 5 MG TABLETS PO PRN (18:48)
[2018-10-16] MEDS ORDERED: chlordiazePOXIDE HCL 25 MG CAPSULE PO PRN (18:48)
[2018-10-16] MEDS ORDERED: MAGNESIUM CITRATE 300 ML BOTTLE PO PRN (18:48)
[2018-10-16] MEDS ORDERED: ONDANSETRON *ODT* 4 MG TABLET SL PRN (18:48)
[2018-10-16] MEDS ORDERED: clonazePAM 0.5 MG TABLET PO PRN (18:48)
[2018-10-16] MEDS ORDERED: chlordiazePOXIDE HCL 25 MG CAPSULE PO ONE (19:15)
[2018-10-16] MEDS: traZODone HCL 100 MG TABLET (FP) PO SCH (22:00)
[2018-10-16] MEDS: THIAMINE HCL 100 MG TABLET (FP) PO SCH (22:00)
[2018-10-16] MEDS: METHOCARBAMOL 500 MG TABLET PO PRN (22:03)
[2018-10-16] MEDS ORDERED: METHADONE HCL 10 MG TABLET (FOR DETOX USE ONLY) PO ONE (23:00)
[2018-10-16] MEDS: chlordiazePOXIDE HCL 25 MG CAPSULE PO SCH (23:18)
[2018-10-16 23:35] LABS: PH,URINE 7.5 (5.0-8.0); URINE APPEARANCE CLEAR; URINE BILIRUBIN NEGATIVE (NEGATIVE); URINE COLOR YELLOW; URINE GLUCOSE (UA) NEGATIVE (NEGATIVE); URINE KETONE NEGATIVE (NEGATIVE); URINE LEUK ESTERASE NEGATIVE (NEGATIVE); URINE NITRITE NEGATIVE (NEGATIVE); URINE PROTEIN NEGATIVE (NEGATIVE)
[2018-10-17] MEDS: chlordiazePOXIDE HCL 25 MG CAPSULE PO SCH ×4 (05:37→22:08)
--- NOTE | 2018-10-17 08:49 | PN ---
S CIWA - CIWA Score Nausea/Vomitin Muscle Tremors: 2 Anxiety: 2 Agitation: 2 Paroxysmal Sweats: 2 Orientation: 0-Oriented Tacttile Disturbances: 1-Very Mild Itch/Numbness Auditory Disturbances: 1-Very Mild Visual Disturbances: 0-None Headache: 2-Mild CIWA-Ar Total Score: 14 BHS COWS - Scale Resting Pulse: 0= [place] 80 or Below Sweatin= Chills/Flushing Restless Observation: 3= Extraneous Movement Pupil Size: 1= Pupils >than Normal Bone or Joint Aches: 2= Severe Diffuse Aches Runny Nose/ Eye Tearin= Runny Nose/Eyes GI Upset > 30mins: 2= Nausea/Diarrhea Tremor Observation of Outstretched Hands: 2= Slight Tremor Visible Yawning Observation: 1= 1-2x During Session Anxiety or Irritability: 2=Irritable/Anxious Goose Flesh Skin: 0=Smooth Skin COWS Score: 16 S Progress Note (SOAP) Subjective: alert,irritable,axious,interrupted sleep,pain in the body and back,tremor Objective: 10/17/18 08:48 Vital Signs Temperature 96.8 F L 10/17/18 06:26 Pulse Rate 54 L 10/17/18 06:26 Respiratory Rate 18 10/17/18 06:26 Blood Pressure 101/57 L 10/17/18 06:26 O2 Sat by Pulse Oximetry (%) Laboratory Last Values Urine Color Yellow 10/16/18 23:20 Urine Appearance Clear 10/16/18 23:20 Urine pH 7.5 (5.0-8.0) D 10/16/18 23:20 Ur Specific [place] 1.017 (1.010-1.035) 10/16/18 23:20 Urine Protein Negative (NEGATIVE) 10/16/18 23:20 Urine Glucose (UA) Negative (NEGATIVE) 10/16/18 23:20 Urine Ketones Negative (NEGATIVE) 10/16/18 23:20 Urine Blood Negative (NEGATIVE) 10/16/18 23:20 Urine Nitrite Negative (NEGATIVE) 10/16/18 23:20 Urine Bilirubin Negative (NEGATIVE) 10/16/18 23:20 Urine Urobilinogen 1.0 mg/dL (0.2-1.0) 10/16/18 23:20 Ur Leukocyte Esterase Negative (NEGATIVE) 10/16/18 23:20 labs pending Assessment: 10/17/18 08:49 withdrawal symptom Plan: continue detox
[2018-10-17] MEDS ORDERED: METHADONE HCL 10 MG TABLET (FOR DETOX USE ONLY) PO ONE (10:00)
[2018-10-17] MEDS: PRENATAL VITAMINS W/ FOLIC ACID TABLET (FP) PO SCH (10:18)
[2018-10-17] MEDS: ARIPiprazole 10 MG TABLET PO SCH (10:18)
[2018-10-17] MEDS: NICOTINE 21 MG/24 HOURS TOPICAL PATCH TD SCH (10:18)
[2018-10-17 10:20] LABS: ALK PHOS 88 U/L (45-117); ANION GAP 6 MMOL/L (8-16); BILIRUBIN,TOTAL 0.3 mg/dL (0.2-1); BLOOD UREA NITROGEN 17 mg/dL (7-18); CALCIUM 8.2 mg/dL (8.5-10.1); CHLORIDE 106 mmol/L (98-107); CO2 28 mmol/L (21-32); CREATININE 0.7 mg/dL (0.55-1.3); GLUCOSE,RANDOM 102 mg/dL (74-106); POTASSIUM 4.5 mmol/L (3.5-5.1); SGOT/AST 18 U/L (15-37); SGPT/ALT 19 U/L (13-61); SODIUM 141 mmol/L (136-145); TOT PROT 6.2 g/dl (6.4-8.2)
[2018-10-17 10:21] LABS: HEMATOCRIT 39.8 % (35.4-49); HEMOGLOBIN 13.1 GM/dL (11.7-16.9); MCH 26.2 pg (25.7-33.7); MCHC 32.9 g/dl (32.0-35.9); MEAN CELL VOLUME 79.6 fl (80-96); MEAN PLT VOLUME 8.3 fl (7.5-11.1); PLATELET COUNT 235 K/MM3 (134-434); RDW 17.5 % (11.9-15.9)
[2018-10-17] MEDS: VENLAFAXINE HCL 75 MG E.R. CAPSULES (FP) PO SCH (12:43)
[2018-10-17] MEDS: hydrOXYzine PAMOATE 25 MG CAPSULE (FP) PO PRN (12:43)
[2018-10-17] MEDS: THIAMINE HCL 100 MG TABLET (FP) PO SCH (22:08)
[2018-10-17] MEDS: traZODone HCL 100 MG TABLET (FP) PO SCH (22:08)
[2018-10-18] MEDS: chlordiazePOXIDE HCL 25 MG CAPSULE PO SCH ×3 (05:31→17:25)
[2018-10-18] MEDS: hydrOXYzine PAMOATE 25 MG CAPSULE (FP) PO PRN ×2 (05:34→10:47)
[2018-10-18] MEDS ORDERED: METHADONE HCL 10 MG TABLET (FOR DETOX USE ONLY) PO ONE (10:00)
[2018-10-18] MEDS: VENLAFAXINE HCL 75 MG E.R. CAPSULES (FP) PO SCH (10:33)
[2018-10-18] MEDS: NICOTINE 21 MG/24 HOURS TOPICAL PATCH TD SCH (10:34)
[2018-10-18] MEDS: ARIPiprazole 10 MG TABLET PO SCH (10:34)
[2018-10-18] MEDS: PRENATAL VITAMINS W/ FOLIC ACID TABLET (FP) PO SCH (10:34)
[2018-10-18] MEDS: METHOCARBAMOL 500 MG TABLET PO PRN ×2 (10:47→17:25)
--- NOTE | 2018-10-18 12:11 | PN ---
S CIWA - CIWA Score Nausea/Vomitin Muscle Tremors: 2 Anxiety: 2 Agitation: 2 Paroxysmal Sweats: 2 Orientation: 0-Oriented Tacttile Disturbances: 1-Very Mild Itch/Numbness Auditory Disturbances: 1-Very Mild Visual Disturbances: 0-None Headache: 2-Mild CIWA-Ar Total Score: 14 BHS COWS - Scale Resting Pulse: 1= [place] 81-100 Sweatin= Chills/Flushing Restless Observation: 1= Difficult to Sit Still Pupil Size: 1= Pupils >than Normal Bone or Joint Aches: 2= Severe Diffuse Aches Runny Nose/ Eye Tearin= Nasal Congestion GI Upset > 30mins: 2= Nausea/Diarrhea Tremor Observation of Outstretched Hands: 2= Slight Tremor Visible Yawning Observation: 1= 1-2x During Session Anxiety or Irritability: 2=Irritable/Anxious Goose Flesh Skin: 0=Smooth Skin COWS Score: 14 S Progress Note (SOAP) Subjective: alert,irritable,anxious,interrupted sleep,tremor,pain in the body and back Objective: 10/18/18 12:10 Vital Signs Temperature 98.2 F 10/18/18 09:19 Pulse Rate 82 10/18/18 09:19 Respiratory Rate 18 10/18/18 09:19 Blood Pressure 116/58 L 10/18/18 09:19 O2 Sat by Pulse Oximetry (%) Laboratory Last Values WBC 6.0 K/mm3 (4.0-10.0) 10/17/18 07:00 RBC 5.00 M/mm3 (4.00-5.60) 10/17/18 07:00 Hgb 13.1 GM/dL (11.7-16.9) 10/17/18 07:00 Hct 39.8 % (35.4-49) 10/17/18 07:00 MCV 79.6 fl (80-96) L 10/17/18 07:00 MCH 26.2 pg (25.7-33.7) 10/17/18 07:00 MCHC 32.9 g/dl (32.0-35.9) 10/17/18 07:00 RDW 17.5 % (11.9-15.9) H 10/17/18 07:00 Plt Count 235 K/MM3 (134-434) D 10/17/18 07:00 MPV 8.3 fl (7.5-11.1) 10/17/18 07:00 Sodium 141 mmol/L (136-145) 10/17/18 07:00 Potassium 4.5 mmol/L (3.5-5.1) 10/17/18 07:00 Chloride 106 mmol/L (98-107) 10/17/18 07:00 Carbon Dioxide 28 mmol/L (21-32) 10/17/18 07:00 Anion Gap 6 MMOL/L (8-16) L 10/17/18 07:00 BUN 17 mg/dL (7-18) 10/17/18 07:00 Creatinine 0.7 mg/dL (0.55-1.3) 10/17/18 07:00 Creat Clearance w eGFR 127.60 (>60) 10/17/18 07:00 Random Glucose 102 mg/dL (74-106) 10/17/18 07:00 Calcium 8.2 mg/dL (8.5-10.1) L 10/17/18 07:00 Total Bilirubin 0.3 mg/dL (0.2-1) 10/17/18 07:00 AST 18 U/L (15-37) 10/17/18 07:00 ALT 19 U/L (13-61) 10/17/18 07:00 Alkaline Phosphatase 88 U/L (45-117) 10/17/18 07:00 Total Protein 6.2 g/dl (6.4-8.2) L 10/17/18 07:00 Albumin 3.0 g/dl (3.4-5.0) L 10/17/18 07:00 Urine Color Yellow 10/16/18 23:20 Urine Appearance Clear 10/16/18 23:20 Urine pH 7.5 (5.0-8.0) D 10/16/18 23:20 Ur Specific [place] 1.017 (1.010-1.035) 10/16/18 23:20 Urine Protein Negative (NEGATIVE) 10/16/18 23:20 Urine Glucose (UA) Negative (NEGATIVE) 10/16/18 23:20 Urine Ketones Negative (NEGATIVE) 10/16/18 23:20 Urine Blood Negative (NEGATIVE) 10/16/18 23:20 Urine Nitrite Negative (NEGATIVE) 10/16/18 23:20 Urine Bilirubin Negative (NEGATIVE) 10/16/18 23:20 Urine Urobilinogen 1.0 mg/dL (0.2-1.0) 10/16/18 23:20 Ur Leukocyte Esterase Negative (NEGATIVE) 10/16/18 23:20 RPR Titer Nonreactive (NONREACTIVE) 10/17/18 07:00 Assessment: 10/18/18 12:10 withdrawal symptom Plan: continue detox
[2018-10-18] MEDS: THIAMINE HCL 100 MG TABLET (FP) PO SCH (22:06)
[2018-10-18] MEDS: traZODone HCL 100 MG TABLET (FP) PO SCH (22:06)
[2018-10-18] MEDS: chlordiazePOXIDE HCL 10 MG CAPSULE PO SCH (22:08)
[2018-10-18] MEDS ORDERED: chlordiazePOXIDE HCL 10 MG CAPSULE PO PRN (23:00)
[2018-10-19] MEDS: chlordiazePOXIDE HCL 10 MG CAPSULE PO SCH ×3 (05:15→16:48)
[2018-10-19] MEDS: hydrOXYzine PAMOATE 25 MG CAPSULE (FP) PO PRN ×3 (08:40→22:01)
[2018-10-19] MEDS: VENLAFAXINE HCL 75 MG E.R. CAPSULES (FP) PO SCH (09:57)
[2018-10-19] MEDS: PRENATAL VITAMINS W/ FOLIC ACID TABLET (FP) PO SCH (09:57)
[2018-10-19] MEDS: ARIPiprazole 10 MG TABLET PO SCH (09:57)
[2018-10-19] MEDS: NICOTINE 21 MG/24 HOURS TOPICAL PATCH TD SCH (09:58)
[2018-10-19] MEDS ORDERED: METHADONE HCL 10 MG TABLET (FOR DETOX USE ONLY) PO ONE (10:00)
--- NOTE | 2018-10-19 11:40 | PN ---
S Progress Note (SOAP) Subjective: Sweats, tremors,diarrhea and back pain Objective: 10/19/18 11:39 Vital Signs - 8 hr 10/19/18 10/19/18 06:26 10:00 Temperature 97.5 F L 97.5 F L Pulse Rate 60 70 Respiratory 18 18 Rate Blood Pressure 108/61 121/71 Laboratory Last Values WBC 6.0 K/mm3 (4.0-10.0) 10/17/18 07:00 RBC 5.00 M/mm3 (4.00-5.60) 10/17/18 07:00 Hgb 13.1 GM/dL (11.7-16.9) 10/17/18 07:00 Hct 39.8 % (35.4-49) 10/17/18 07:00 MCV 79.6 fl (80-96) L 10/17/18 07:00 MCH 26.2 pg (25.7-33.7) 10/17/18 07:00 MCHC 32.9 g/dl (32.0-35.9) 10/17/18 07:00 RDW 17.5 % (11.9-15.9) H 10/17/18 07:00 Plt Count 235 K/MM3 (134-434) D 10/17/18 07:00 MPV 8.3 fl (7.5-11.1) 10/17/18 07:00 Sodium 141 mmol/L (136-145) 10/17/18 07:00 Potassium 4.5 mmol/L (3.5-5.1) 10/17/18 07:00 Chloride 106 mmol/L (98-107) 10/17/18 07:00 Carbon Dioxide 28 mmol/L (21-32) 10/17/18 07:00 Anion Gap 6 MMOL/L (8-16) L 10/17/18 07:00 BUN 17 mg/dL (7-18) 10/17/18 07:00 Creatinine 0.7 mg/dL (0.55-1.3) 10/17/18 07:00 Creat Clearance w eGFR 127.60 (>60) 10/17/18 07:00 Random Glucose 102 mg/dL (74-106) 10/17/18 07:00 Calcium 8.2 mg/dL (8.5-10.1) L 10/17/18 07:00 Total Bilirubin 0.3 mg/dL (0.2-1) 10/17/18 07:00 AST 18 U/L (15-37) 10/17/18 07:00 ALT 19 U/L (13-61) 10/17/18 07:00 Alkaline Phosphatase 88 U/L (45-117) 10/17/18 07:00 Total Protein 6.2 g/dl (6.4-8.2) L 10/17/18 07:00 Albumin 3.0 g/dl (3.4-5.0) L 10/17/18 07:00 Urine Color Yellow 10/16/18 23:20 Urine Appearance Clear 10/16/18 23:20 Urine pH 7.5 (5.0-8.0) D 10/16/18 23:20 Ur Specific [place] 1.017 (1.010-1.035) 10/16/18 23:20 Urine Protein Negative (NEGATIVE) 10/16/18 23:20 Urine Glucose (UA) Negative (NEGATIVE) 10/16/18 23:20 Urine Ketones Negative (NEGATIVE) 10/16/18 23:20 Urine Blood Negative (NEGATIVE) 10/16/18 23:20 Urine Nitrite Negative (NEGATIVE) 10/16/18 23:20 Urine Bilirubin Negative (NEGATIVE) 10/16/18 23:20 Urine Urobilinogen 1.0 mg/dL (0.2-1.0) 10/16/18 23:20 Ur Leukocyte Esterase Negative (NEGATIVE) 10/16/18 23:20 RPR Titer Nonreactive (NONREACTIVE) 10/17/18 07:00 Labs noted Assessment: 10/19/18 11:40 Withdrawal sx Plan: Continue detox
[2018-10-19] MEDS: METHOCARBAMOL 500 MG TABLET PO PRN (16:48)
[2018-10-19] MEDS: THIAMINE HCL 100 MG TABLET (FP) PO SCH (22:00)
[2018-10-19] MEDS: traZODone HCL 100 MG TABLET (FP) PO SCH (22:01)
[2018-10-19] MEDS ORDERED: chlordiazePOXIDE HCL 10 MG CAPSULE PO SCH (23:00)
[2018-10-20] MEDS ORDERED: METHADONE HCL 5 MG TABLET (FOR DETOX USE ONLY) PO ONE (06:00)
[2018-10-20 06:53] VITALS: BP 114/73; PULSE 66; TEMP 97.7
[2018-10-20] MEDS: NICOTINE 21 MG/24 HOURS TOPICAL PATCH TD SCH (09:04)
[2018-10-20] MEDS: PRENATAL VITAMINS W/ FOLIC ACID TABLET (FP) PO SCH (09:04)
[2018-10-20] MEDS: VENLAFAXINE HCL 75 MG E.R. CAPSULES (FP) PO SCH (09:04)
[2018-10-20] MEDS: ARIPiprazole 10 MG TABLET PO SCH (09:04)
--- NOTE | 2018-10-20 11:42 | DS ---
[facility] Detox Discharge Summary Admission Date: 10/16/18 Discharge Date: 10/20/18 - History Present History: Alcohol Dependence, Opioid Dependence - Physical Exam Results Vital Signs: Vital Signs Temperature 97.7 F 10/20/18 06:53 Pulse Rate 66 10/20/18 06:53 Respiratory Rate 18 10/20/18 06:53 Blood Pressure 114/73 10/20/18 06:53 O2 Sat by Pulse Oximetry (%) - Treatment Hospital Course: Detox Protocol Followed, Detoxed Safely, Responded well, Discharged Condition Good, Rehab Referral Accepted Patient has Accepted a Rehab Referral to: [facility] - Medication Discharge Medications: Ambulatory Orders Zolpidem Tartrate [Ambien] 10 mg PO HS 09/30/15 Aripiprazole [Abilify -] 10 mg PO DAILY #30 tablet 03/27/17 Venlafaxine HCl ER [Effexor Xr -] 75 mg PO DAILY #30 cap 03/27/17 Trazodone HCl 100 mg PO HS 10/16/18 - Diagnosis (1) Opioid dependence with withdrawal Status: Resolved (2) Alcohol dependence with uncomplicated withdrawal Status: Resolved (3) Nicotine dependence Status: Chronic Qualifiers: Nicotine product type: cigarettes Substance use status: in withdrawal Qualified Code(s): F17.213 - Nicotine dependence, cigarettes, with withdrawal - AMA Did Patient Leave Against Medical Advice: No
== END 2018-10-20 09:11 | disposition home or self-care (01) | DRG 773 ==
LOC: YASAS 15:02 → Y6N 19:05
PROVIDERS: ADMIT Surgery; ATTEND Surgery
PROC: HZ2ZZZZ Detoxification Services for Substance Abuse Treatment (ICD-10-PCS; principal; 2018-10-16)
DX: F11.23 Opioid dependence with withdrawal (principal); F10.230 Alcohol dependence with withdrawal, uncomplicated; F14.20 Cocaine dependence, uncomplicated; F17.213 Nicotine dependence, cigarettes, with withdrawal; F31.9 Bipolar disorder, unspecified; J45.20 Mild intermittent asthma, uncomplicated; Z86.19 Personal history of other infectious and parasitic diseases
CPT/HCPCS: 36415; 80053; 81003; 85027; 86593; J0735

== ENCOUNTER 2019-06-28 13:37 | Inpatient (IN) | payer OTHER ==
[2019-06-28 16:11] VITALS: BMI 23.1
--- NOTE | 2019-06-28 17:16 | HP ---
COWS - Scale Resting Pulse: 0= [place] 80 or Below Sweatin= Chills/Flushing Restless Observation: 1= Difficult to Sit Still Pupil Size: 1= Pupils >than Normal Bone or Joint Aches: 2= Severe Diffuse Aches Runny Nose/ Eye Tearin= Runny Nose/Eyes GI Upset > 30mins: 3= Vomiting/Diarrhea Tremor Observation: 2= Slight Tremor Visible Yawning Observation: 2= >3x During Session Anxiety or Irritability: 2=Irritable/Anxious Goose Flesh Skin: 0=Smooth Skin COWS Score: 16 CIWA Score Nausea/Vomitin Muscle Tremors: 3 Anxiety: 3 Agitation: 3 Paroxysmal Sweats: 1-Minimal Palms Moist Orientation: 0-Oriented Tacttile Disturbances: 1-Very Mild Itch/Numbness Auditory Disturbances: 0-None Visual Disturbances: 0-None Headache: 2-Mild CIWA-Ar Total Score: 15 - Admission Criteria OASAS Guidelines: Admission for Medically Managed Detox: Requires at least one of the followin. CIWA greater than 12 2. Seizures within the past 24 hours 3. Delirium tremens within the past 24 hours 4. Hallucinations within the past 24 hours 5. Acute intervention needed for co occurring medical disorder 6. Acute intervention needed for co occurring psychiatric disorder 7. Severe withdrawal that cannot be handled at a lower level of care (continued vomiting, continued diarrhea, abnormal vital signs) requiring intravenous medication and/or fluids 8. Admitting History and Physical - Admission Chief Complaint: i need help to sto using heroi,alcohol,cocaine History of Present Illness: this 39 years old male with heroin,alcohol, and cocaine dependence,seeking detox ,withdrawal symptom multiple admissions in detox,last 10/16/18 to 10/20/18 nicotine dependence bipolar disorder,anxiety/longest sobriety 3 years History Source: Patient - Past Medical History Pulmonary: Yes: Asthma Hepatobiliary: Yes: Hepatitis C (treated) Psych: Yes: Bipolar - Smoking History Smoking history: Current every day smoker Have you smoked in the past 12 months: Yes Aproximately how many cigarettes per day: 20 - Alcohol/Substance Use Hx Alcohol Use: Yes History of Substance Use: reports: Cocaine - Social History Usual Living Arrangement: Yes: Other (homeless) ADL: Support Services Occupation: unemployed History of Recent Travel: No Other Social History: this 5y yars old unemployed,homeless,soming cigarette, seeking inpatient detox heroin,alcohol,cocaine Admission ROS [facility] - HPI Chief Complaint: i need help to stop using heroin,alcohol,cocaine Allergies/Adverse Reactions: Allergies Allergy/AdvReac Type Severity Reaction Status Date / Time No Known Allergies Allergy Verified 06/28/19 16:01 History of Present Illness: this 39 years old male with heroin,alcohol and cocaine dependence,seeking detox, withdrawal symptom, multiple admissions last 10/16/18 to 07/22/18 homeless nicotine dependence 1 pack/day bipolar disorder longest sobriety 3 years plan for rehab schizoaffective disorder Exam Limitations: No Limitations - Ebola screening Have you traveled outside of the country in the last 21 days: No (N) Have you had contact with anyone from an Ebola affected area: No Do you have a fever: No - Review of Systems Constitutional: Chills, Loss of Appetite, Malaise, Changes in sleep, Weakness, Unintentional Wgt. Loss EENT: reports: Tearing, Nose Congestion Respiratory: reports: No Symptoms reported, Other (luciano) Cardiac: reports: No Symptoms Reported GI: reports: Diarrhea, Nausea, Abdominal cramping : reports: No Symptoms Reported Musculoskeletal: reports: Back Pain, Joint Pain, Muscle Pain Integumentary: reports: Dryness Neuro: reports: Headache, Tremors Endocrine: reports: No Symptoms Reported Hematology: reports: No Symptoms Reported Psychiatric: reports: No Sypmtoms Reported, Judgement Intact, Mood/Affect Appropiate, Orientated x3, other (bipolar disorder) Patient History - Patient Medical History Hx Anemia: No Hx Asthma: Yes (on albuterol inhaler) Hx Chronic Obstructive Pulmonary Disease (COPD): No Hx Cancer: No Hx Cardiac Disorders: No Hx Congestive Heart Failure: No Hx Hypertension: No Hx Hypercholesterolemia: No Hx Pacemaker: No HX Cerebrovascular Accident: No Hx Seizures: No Hx Dementia: No Hx Diabetes: No Hx Gastrointestinal Disorders: No Hx Liver Disease: Yes (hepatitis c) Hx Genitourinary Disorders: No Hx Sexually Transmitted Disorders: No Hx Renal Disease (ESRD): No Hx Thyroid Disease: No Hx Human Immunodeficiency Virus (HIV): No Hx Hepatitis C: Yes (TREATED) Hx Depression: Yes Hx Suicide Attempt: No Hx Bipolar Disorder: Yes (EFFEXOR) Hx Schizophrenia: No Other Medical History: no sucidal,no homicidal - Patient Surgical History Past Surgical History: No Hx Neurologic Surgery: No Hx Cataract Extraction: No Hx Cardiac Surgery: No Hx Lung Surgery: No Hx Breast Surgery: No Hx Breast Biopsy: No Hx Abdominal Surgery: No Hx Appendectomy: No Hx Cholecystectomy: No Hx Genitourinary Surgery: No Hx Section: No Hx Orthopedic Surgery: No Anesthesia Reaction: No - PPD History Previous Implant?: Yes Documented Results: Negative w/o proof Date: 11/30/16 Results: 0 mm PPD to be Administered?: Yes - Smoking Cessation Smoking history: Current every day smoker Have you smoked in the past 12 months: Yes Aproximately how many cigarettes per day: 20 Cigars Per Day: 0 Hx Chewing Tobacco Use: No Initiated information on smoking cessation: Yes 'Breaking Loose' booklet given: 06/28/19 - Substance & Tx. History Hx Alcohol Use: Yes Hx Substance Use: Yes Substance Use Type: Alcohol, Cocaine, Heroin Hx Substance Use Treatment: Yes ([facility] 10/16/18 to 10/20/18) - Substances abused Heroin Substance route: Injection Frequency: Daily Amount used: 20 bags Age of first use: 17 Date of last use: 06/28/19 Cocaine Substance route: Injection Frequency: Daily Amount used: 20 bags Age of first use: 17 Date of last use: 06/28/19 Alcohol Substance route: Oral Frequency: Daily Amount used: 12 (16 ounes) day Age of first use: 24 Date of last use: 06/28/19 Admission Physical Exam [facility] - Vital Signs Vital Signs: Vital Signs - 24 hr 06/28/19 15:59 Temperature 96.9 F L Pulse Rate 54 L Respiratory 18 Rate Blood Pressure 119/62 - Physical General Appearance: Yes: Moderate Distress, Tremorous, Irritable, Sweating, Anxious HEENTM: Yes: Normal ENT Inspection, MISAEL, Pharynx Normal Respiratory: Yes: Within Normal Limits, Lungs Clear, Normal Breath Sounds Neck: Yes: Within Normal Limits, Supple, Trachea in good position Breast: Yes: Within Normal Limits Cardiology: Yes: Bradycardia Abdominal: Yes: Within Normal Limits, Normal Bowel Sounds, Non Tender, Flat, Soft Genitourinary: Yes: Within Normal Limits Back: Yes: Muscle Spasm Musculoskeletal: Yes: Back pain, Muscle Pain Extremities: Yes: Tremors 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 (5) Hepatitis C Current Visit: No Status: Chronic Qualifiers: Viral hepatitis chronicity: unspecified Hepatic coma status: without hepatic coma Qualified Code(s): B19.20 - Unspecified viral hepatitis C without hepatic coma (6) Nicotine dependence Current Visit: No Status: Chronic Qualifiers: Nicotine product type: cigarettes Substance use status: in withdrawal Qualified Code(s): F17.213 - Nicotine dependence, cigarettes, with withdrawal (7) Alcohol dependence with uncomplicated withdrawal Current Visit: No Status: Resolved (8) IVDU (intravenous drug user) Current Visit: Yes Status: Acute Cleared for Admission S - Detox or Rehab [facility] Level of Care: Medically Managed Detox Regimen/Protocol: Methadone/Valium Breathalyzer - Breathalyzer Breathalyzer: 0 Urine Drug Screen - Test Device Lot number: [id number] Expiration date: 02/05/21 - Control Is test valid?: Yes - Results Drug screen NEGATIVE: No Urine drug screen results: AV-Cocaine, FEN-Fentanyl, MOP-Opiates Inpatient Rehab Admission - Rehab Decision to Admit Inpatient rehab admission?: No
[2019-06-28] MEDS ORDERED: MAGNESIUM CITRATE 300 ML BOTTLE PO PRN (17:32)
[2019-06-28] MEDS ORDERED: IBUPROFEN 400 MG TABLET (FP) PO PRN (17:32)
[2019-06-28] MEDS ORDERED: ACETAMINOPHEN 325 MG TABLET (FP) PO PRN ×2 (17:32)
[2019-06-28] MEDS ORDERED: NICOTINE POLACRILEX 2 MG GUM BUC PRN (17:32)
[2019-06-28] MEDS ORDERED: MAGNESIUM HYDROX 2400MG/30ML ORAL SUSPENSION 30 ML CUP PO PRN (17:32)
[2019-06-28] MEDS ORDERED: MAG HYDROX/AL HYDROX/SIMETH 30 ML UNIT-DOSE CUP PO PRN (17:32)
[2019-06-28] MEDS ORDERED: MENTHOL/PHENOL 1 EACH UD MM PRN (17:32)
[2019-06-28] MEDS ORDERED: METHADONE HCL 10 MG TABLET (FOR DETOX USE ONLY) PO ONE (17:32)
[2019-06-28] MEDS: NICOTINE 21 MG/24 HOURS TOPICAL PATCH TD SCH (18:33)
[2019-06-28] MEDS: diazePAM 5 MG TABLET PO SCH (22:48)
[2019-06-28] MEDS: THIAMINE HCL 100 MG TABLET (FP) PO SCH (22:48)
[2019-06-28] MEDS: MELATONIN 5 MG TABLETS PO PRN (22:49)
[2019-06-29] MEDS: diazePAM 5 MG TABLET PO PRN ×4 (04:57→23:47)
[2019-06-29] MEDS: diazePAM 5 MG TABLET PO SCH ×3 (06:23→22:17)
[2019-06-29] MEDS ORDERED: METHADONE HCL 5 MG TABLET (FOR DETOX USE ONLY) ONE (09:42)
[2019-06-29] MEDS ORDERED: METHADONE HCL 10 MG TABLET (FOR DETOX USE ONLY) ONE (09:43)
[2019-06-29] MEDS ORDERED: METHADONE (DETOX) 20 MG, METHADONE (DETOX) 5 MG PO ONE (10:00)
[2019-06-29] MEDS: NICOTINE 21 MG/24 HOURS TOPICAL PATCH TD SCH (10:23)
[2019-06-29] MEDS: PRENATAL VITAMINS W/ FOLIC ACID TABLET (FP) PO SCH (10:24)
--- NOTE | 2019-06-29 10:48 | CONSULT ---
[facility] Psychiatric Consult - Data Date of interview: 06/29/19 Admission source: [facility] Identifying data: Patient is a 39 year old single male, father of two, unemployed, homeless, and is not currently receiving financial assistance. This is one of multiple admissions for patient. Patient admitted to for alcohol, opioid, and cocaine dependence. Substance Abuse History: Smoking Cessation. Smoking history: Current every day smoker. Have you smoked in the past 12 months: Yes. Aproximately how many cigarettes per day: 20. Cigars Per Day: 0. Hx Chewing Tobacco Use: No. Initiated information on smoking cessation: Yes. 'Breaking Loose' booklet given : 06/28/19. - Substance & Tx. History. Hx Alcohol Use: Yes. Hx Substance Use : Yes. Substance Use Type: Alcohol, Cocaine, Heroin. Hx Substance Use Treatment: Yes ([facility] 10/16/18 to 10/20/18). - Substances abused. Heroin. Substance route: Injection. Frequency: Daily. Amount used: 20 bags. Age of first use: 17. Date of last use: 06/28/19. Cocaine. Substance route: Injection. Frequency: Daily. Amount used: 20 bags. Age of first use: 17. Date of last use: 06/28/19. Alcohol. Substance route: Oral. Frequency: Daily. Amount used: 12 (16 ounes) day. Age of first use: 24. Date of last use : 06/28/19 Medical History: Asthma, Hep C( treated). Psychiatric History: Mr. Armendariz reports history of multiple psychiatric hospitalizations, most recently at [facility] several months ago due to feeling depressed. Additional hospitalizations have occured at [facility]. Reports a diagnosis of Bipolar disorder. Mr. Armendariz is currently provided with outpatient psychiatric care in the [place], [place] and is prescribed effexor + Abilify + xanax. Patient unaware of doses. He reports noncompliant to effexor and abilify. At present patient reports feeling sad and is experiencing difficulty sleeping. Physical/Sexual Abuse/Trauma History: denies. Mental Status Exam - Mental Status Exam Alert and Oriented to: Time, Place, Person Cognitive Function: Good Patient Appearance: Well Groomed Mood: Withdrawn, Anxious Affect: Mood Congruent Patient Behavior: Fatigued, Cooperative Speech Pattern: Clear Voice Loudness: Normal Thought Process: Goal Oriented Thought Disorder: Not Present Hallucinations: Denies Suicidal Ideation: Denies Homicidal Ideation: Denies Insight/Judgement: Poor Sleep: Poorly Appetite: Fair Muscle strength/Tone: Normal Gait/Station: Normal Psychiatric Findings - Problem List ([place] 1, 2,3) (1) Alcohol dependence Status: Acute (2) Cocaine dependence Status: Acute (3) Substance induced mood disorder Status: Acute (4) Opioid dependence with withdrawal Status: Acute (5) Mood disorder Status: Chronic (6) Substance-induced sleep disorder Status: Acute - Initial Treatment Plan Initial Treatment Plan: Psychoeducation provided. Detoxification in progress. Will order Abilify 5mg HS + trazodone 100mg ( patient request for insomnia. reports favorable effect from taking medication in the past). Patient not interested in resuming effexor as he reports noncompliance. Benefits and side effects discussed. Verbal consent given.
--- NOTE | 2019-06-29 12:43 | PN ---
[facility] CIWA - CIWA Score Nausea/Vomitin-No Nausea/No Vomiting Muscle Tremors: 2 Anxiety: 3 Agitation: 2 Paroxysmal Sweats: 3 Orientation: 0-Oriented Tacttile Disturbances: 0-None Auditory Disturbances: 0-None Visual Disturbances: 0-None Headache: 2-Mild CIWA-Ar Total Score: 12 [facility] COWS - Scale Resting Pulse: 0= [place] 80 or Below Sweatin= Beads of Sweat on Face Restless Observation: 1= Difficult to Sit Still Pupil Size: 0= Normal to Room Light Bone or Joint Aches: 2= Severe Diffuse Aches Runny Nose/ Eye Tearin= None GI Upset > 30mins: 0= None Tremor Observation of Outstretched Hands: 2= Slight Tremor Visible Yawning Observation: 1= 1-2x During Session Anxiety or Irritability: 2=Irritable/Anxious Goose Flesh Skin: 0=Smooth Skin COWS Score: 11 S Progress Note (SOAP) Subjective: c/o anxiety, irritability, headache, muscle aches, and interrupted sleep. Objective: 06/29/19 12:42 Vital Signs 06/29/19 06:29 Temperature 98.1 F Pulse Rate 58 L Respiratory 19 Rate Blood Pressure 121/76 Assessment: 06/29/19 12:42 AOX3, in no acute respiratory distress. Full ROM, ambulating in the unit. Withdrawal symptoms Plan: continue detox.
[2019-06-29] MEDS: BISMUTH SUBSALICYLATE 524 MG/30 ML UD PO PRN ×2 (13:10→16:22)
[2019-06-29] MEDS: cloNIDine HCL 0.1 MG TABLET PO PRN (18:29)
[2019-06-29] MEDS: METHOCARBAMOL 500 MG TABLET PO PRN (18:30)
--- NOTE | 2019-06-29 18:45 | EKG ---
Test Reason : Blood Pressure : / mmHG Vent. Rate : 056 BPM Atrial Rate : 056 BPM P-R Int : 118 ms QRS Dur : 094 ms QT Int : 458 ms P-R-T Axes : 046 066 044 degrees QTc Int : 441 ms SINUS BRADYCARDIA MODERATE VOLTAGE CRITERIA FOR LVH, MAY BE NORMAL VARIANT BORDERLINE ECG WHEN COMPARED WITH ECG OF 26-MAR-2017 22:45, VENT. RATE HAS DECREASED BY 39 BPM Confirmed by DEVYN CANDELARIO MD ([id number]) on 06/29/2019 6:44:50 PM Referred By: Confirmed By:DEVYN CANDELARIO MD
[2019-06-29] MEDS: traZODone HCL 50 MG TABLET (FP) PO SCH (22:16)
[2019-06-29] MEDS: THIAMINE HCL 100 MG TABLET (FP) PO SCH (22:17)
[2019-06-29] MEDS: MELATONIN 5 MG TABLETS PO PRN (22:17)
[2019-06-29] MEDS: ARIPiprazole 5 MG TABLET (FP) PO SCH (22:17)
[2019-06-30] MEDS: hydrOXYzine PAMOATE 25 MG CAPSULE (FP) PO PRN ×3 (01:46→21:06)
[2019-06-30] MEDS: cloNIDine HCL 0.1 MG TABLET PO PRN ×2 (01:46→13:00)
[2019-06-30] MEDS: METHOCARBAMOL 500 MG TABLET PO PRN ×3 (01:46→21:06)
[2019-06-30] MEDS: diazePAM 5 MG TABLET PO SCH ×2 (06:27→17:48)
[2019-06-30] MEDS ORDERED: METHADONE HCL 10 MG TABLET (FOR DETOX USE ONLY) PO ONE (10:00)
--- NOTE | 2019-06-30 10:39 | PN ---
[facility] CIWA - CIWA Score Nausea/Vomitin-Mild Nausea/No Vomiting Muscle Tremors: 3 Anxiety: 3 Agitation: 3 Paroxysmal Sweats: 3 Orientation: 0-Oriented Tacttile Disturbances: 0-None Auditory Disturbances: 0-None Visual Disturbances: 0-None Headache: 0-None Present CIWA-Ar Total Score: 13 S COWS - Scale Resting Pulse: 0= [place] 80 or Below Sweatin= Chills/Flushing Restless Observation: 1= Difficult to Sit Still Pupil Size: 0= Normal to Room Light Bone or Joint Aches: 1= Mild Discomfort Runny Nose/ Eye Tearin= Runny Nose/Eyes GI Upset > 30mins: 1= Stomach Cramp Tremor Observation of Outstretched Hands: 1= Tremor [place], Not Seen Yawning Observation: 1= 1-2x During Session Anxiety or Irritability: 2=Irritable/Anxious Goose Flesh Skin: 0=Smooth Skin COWS Score: 10 [facility] Progress Note (SOAP) Subjective: shakes sweats body aches interrupted sleep restless anxiety nausea Objective: 06/30/19 10:39 Vital Signs Temperature 98.2 F 06/30/19 09:24 Pulse Rate 50 L 06/30/19 09:24 Respiratory Rate 18 06/30/19 09:24 Blood Pressure 111/63 06/30/19 09:24 O2 Sat by Pulse Oximetry (%) labs ordered aaox3 lying in bed no acute distress Assessment: 06/30/19 10:41 withdrawals Plan: continue detox increase fluids pending labs ordered
[2019-06-30] MEDS ORDERED: ONDANSETRON *ODT* 4 MG TABLET SL PRN (10:42)
[2019-06-30] MEDS: PRENATAL VITAMINS W/ FOLIC ACID TABLET (FP) PO SCH (10:50)
[2019-06-30] MEDS: diazePAM 5 MG TABLET PO PRN ×2 (10:52→16:23)
[2019-06-30] MEDS: NICOTINE 21 MG/24 HOURS TOPICAL PATCH TD SCH (10:53)
[2019-06-30] MEDS: THIAMINE HCL 100 MG TABLET (FP) PO SCH (21:06)
[2019-06-30] MEDS: traZODone HCL 50 MG TABLET (FP) PO SCH (21:06)
[2019-06-30] MEDS: MELATONIN 5 MG TABLETS PO PRN (21:06)
[2019-06-30] MEDS: ARIPiprazole 5 MG TABLET (FP) PO SCH (21:09)
[2019-07-01] MEDS: hydrOXYzine PAMOATE 25 MG CAPSULE (FP) PO PRN (04:55)
[2019-07-01] MEDS ORDERED: diazePAM 5 MG TABLET PO ONE (06:00)
[2019-07-01] MEDS: METHOCARBAMOL 500 MG TABLET PO PRN (06:01)
[2019-07-01] MEDS: diazePAM 5 MG TABLET PO PRN ×2 (08:03→17:19)
[2019-07-01] MEDS ORDERED: METHADONE HCL 10 MG TABLET (FOR DETOX USE ONLY) ONE (08:31)
[2019-07-01] MEDS ORDERED: METHADONE HCL 5 MG TABLET (FOR DETOX USE ONLY) ONE (08:31)
[2019-07-01] MEDS ORDERED: METHOCARBAMOL 750 MG TAB PO PRN (09:54)
--- NOTE | 2019-07-01 09:57 | PN ---
[facility] CIWA - CIWA Score Nausea/Vomitin-No Nausea/No Vomiting Muscle Tremors: 3 Anxiety: 2 Agitation: 3 Paroxysmal Sweats: 2 Orientation: 0-Oriented Tacttile Disturbances: 0-None Auditory Disturbances: 0-None Visual Disturbances: 0-None Headache: 0-None Present CIWA-Ar Total Score: 10 [facility] COWS - Scale Resting Pulse: 0= [place] 80 or Below Sweatin= Chills/Flushing Restless Observation: 1= Difficult to Sit Still Pupil Size: 0= Normal to Room Light Bone or Joint Aches: 1= Mild Discomfort Runny Nose/ Eye Tearin= Nasal Congestion GI Upset > 30mins: 0= None Tremor Observation of Outstretched Hands: 1= Tremor [place], Not Seen Yawning Observation: 1= 1-2x During Session Anxiety or Irritability: 2=Irritable/Anxious Goose Flesh Skin: 0=Smooth Skin COWS Score: 8 [facility] Progress Note (SOAP) Subjective: irritable restless agitation body aches anxiety sweats Objective: 07/01/19 09:56 Vital Signs Temperature 97.5 F L 07/01/19 09:30 Pulse Rate 64 07/01/19 09:30 Respiratory Rate 16 07/01/19 09:30 Blood Pressure 124/61 07/01/19 09:30 O2 Sat by Pulse Oximetry (%) labs ordered; results pending aaox3 ambulating no acute distress Assessment: 07/01/19 09:56 withdrawals Plan: continue detox visitril 50mg prn continue with valium 10mg prn roboxin 750mg prn
[2019-07-01] MEDS ORDERED: METHADONE (DETOX) 10 MG, METHADONE (DETOX) 5 MG PO ONE (10:00)
[2019-07-01 10:24] LABS: BASO % 0.3 % (0-2.0); EOS % 2.2 % (0-4.5); HEMATOCRIT 43.4 % (35.4-49); LYMPH % 21.6 % (8-40); MCH 26.2 pg (25.7-33.7); MCHC 32.3 g/dl (32.0-35.9); MEAN CELL VOLUME 81.3 fl (80-96); MEAN PLT VOLUME 8.8 fl (7.5-11.1); MONO % 7.6 % (3.8-10.2); NEUT % 68.3 % (42.8-82.8); PLATELET COUNT 320 K/MM3 (134-434); RBC 5.34 M/mm3 (4.00-5.60); RDW 15.5 % (11.9-15.9); WHITE BLOOD COUNT 8.5 K/mm3 (4.0-10.0)
--- NOTE | 2019-07-01 10:35 | PN ---
[facility] Progress Note Note: pt c/o of chest discomfort; V/S stable. ekg ordered
[2019-07-01] MEDS: hydrOXYzine PAMOATE 50 MG CAPSULE (FP) PO PRN ×2 (10:39→21:08)
[2019-07-01] MEDS: PRENATAL VITAMINS W/ FOLIC ACID TABLET (FP) PO SCH (10:39)
[2019-07-01] MEDS: NICOTINE 21 MG/24 HOURS TOPICAL PATCH TD SCH (10:39)
[2019-07-01 11:31] LABS: ALBUMIN 3.6 g/dl (3.4-5.0); BILIRUBIN,TOTAL 0.2 mg/dL (0.2-1); BLOOD UREA NITROGEN 9.6 mg/dL (7-18); CALCIUM 8.8 mg/dL (8.5-10.1); CREATININE 0.9 mg/dL (0.55-1.3); POTASSIUM 4.3 mmol/L (3.5-5.1); TOT PROT 7.2 g/dl (6.4-8.2)
--- NOTE | 2019-07-01 12:07 | EKG ---
Test Reason : Blood Pressure : / mmHG Vent. Rate : 069 BPM Atrial Rate : 069 BPM P-R Int : 116 ms QRS Dur : 084 ms QT Int : 412 ms P-R-T Axes : 056 079 065 degrees QTc Int : 441 ms NORMAL SINUS RHYTHM WITH SINUS ARRHYTHMIA NORMAL ECG WHEN COMPARED WITH ECG OF 28-JUN-2019 17:52, NO SIGNIFICANT CHANGE WAS FOUND Confirmed by MD Cristo, Derrick ([id number]) on 07/01/2019 12:06:45 PM Referred By: Confirmed By:Derrick Lemons MD
[2019-07-01] MEDS: traZODone HCL 50 MG TABLET (FP) PO SCH (21:07)
[2019-07-01] MEDS: THIAMINE HCL 100 MG TABLET (FP) PO SCH (21:08)
[2019-07-01] MEDS: MELATONIN 5 MG TABLETS PO PRN (21:13)
[2019-07-01] MEDS: ARIPiprazole 5 MG TABLET (FP) PO SCH (23:50)
[2019-07-02] MEDS: hydrOXYzine PAMOATE 50 MG CAPSULE (FP) PO PRN (05:11)
[2019-07-02 05:43] VITALS: BP 112/66; PULSE 62; TEMP 96.6
--- NOTE | 2019-07-02 05:54 | DS ---
[facility] Detox Discharge Summary Admission Date: 06/28/19 Discharge Date: 07/02/19 - History Present History: Alcohol Dependence, Cocaine Dependence, Opioid Dependence Additional Comments: SIGNED OUT AMA DOES NOT WANT TO CONT TXMENT DESPITE ENCOURAGEMENT TO DO SO. CLIENT WAS NOT OPEN TO DISCUSSION OR SHARE REASON FOR LEAVING. Pertinent Past History: ASTHMA BIPOLAR NICOTINE DEP IVDU HEP C - Physical Exam Results Vital Signs: Vital Signs Temperature 96.6 F L 07/02/19 05:42 Pulse Rate 62 07/02/19 05:42 Respiratory Rate 18 07/02/19 05:42 Blood Pressure 112/66 07/02/19 05:42 O2 Sat by Pulse Oximetry (%) Pertinent Admission Physical Exam Findings: WITHDRAWAL SX'S Laboratory Tests 07/01/19 07/01/19 07/01/19 07:00 07:00 07:00 WBC 8.5 RBC 5.34 Hgb 14.0 Hct 43.4 MCV 81.3 MCH 26.2 MCHC 32.3 RDW 15.5 D Plt Count 320 D MPV 8.8 Absolute Neuts (auto) 5.8 Neutrophils % 68.3 Lymphocytes % 21.6 Monocytes % 7.6 Eosinophils % 2.2 Basophils % 0.3 Nucleated RBC % 0 Sodium 138 Potassium 4.3 Chloride 106 Carbon Dioxide 25 Anion Gap 7 L BUN 9.6 Creatinine 0.9 Est GFR (CKD-EPI)AfAm 126.02 Est GFR (CKD-EPI)NonAf 108.73 Random Glucose 133 H Calcium 8.8 Total Bilirubin 0.2 AST 26 ALT 30 Alkaline Phosphatase 92 Total Protein 7.2 Albumin 3.6 RPR Titer Nonreactive - Treatment Hospital Course: Discharged Condition Good Patient has Accepted a Rehab Referral to: DECLINED - Medication Discharge Medications: Ambulatory Orders Venlafaxine HCl ER [Effexor Xr -] 75 mg PO DAILY #30 cap 03/27/17 - Diagnosis (1) Alcohol dependence Status: Acute (2) Cocaine dependence Status: Acute (3) IVDU (intravenous drug user) Status: Acute (4) Opioid dependence with withdrawal Status: Acute (5) Asthma Status: Chronic Qualifiers: Asthma severity: mild intermittent Asthma complication type: uncomplicated (6) Hepatitis C Status: Chronic Qualifiers: Viral hepatitis chronicity: unspecified Hepatic coma status: without hepatic coma Qualified Code(s): B19.20 - Unspecified viral hepatitis C without hepatic coma (7) Nicotine dependence Status: Chronic Qualifiers: Nicotine product type: cigarettes Substance use status: in withdrawal Qualified Code(s): F17.213 - Nicotine dependence, cigarettes, with withdrawal - AMA Did Patient Leave Against Medical Advice: Yes (CLIENT DECIDED TO ABORT ADMISSION FOR PERSONAL REASONS)
[2019-07-02] MEDS ORDERED: METHADONE HCL 10 MG TABLET (FOR DETOX USE ONLY) PO ONE (10:00)
[2019-07-02 11:08] LABS: URINE APPEARANCE CLEAR; URINE BILIRUBIN NEGATIVE (NEGATIVE); URINE COLOR YELLOW; URINE GLUCOSE (UA) NEGATIVE (NEGATIVE); URINE KETONE TRACE (NEGATIVE); URINE LEUK ESTERASE NEGATIVE (NEGATIVE); URINE NITRITE NEGATIVE (NEGATIVE); URINE PROTEIN NEGATIVE (NEGATIVE); URINE UROBILINOGEN 0.2 mg/dL (0.2-1.0)
[2019-07-03] MEDS ORDERED: METHADONE HCL 5 MG TABLET (FOR DETOX USE ONLY) PO ONE (06:00)
== END 2019-07-02 05:40 | disposition left against medical advice (07) | DRG 770 ==
LOC: YASAS 13:37 → Y6N 18:05
PROVIDERS: ADMIT Allergy & Immunology; ATTEND Allergy & Immunology
PROC: HZ2ZZZZ Detoxification Services for Substance Abuse Treatment (ICD-10-PCS; principal; 2019-06-28)
DX: F11.23 Opioid dependence with withdrawal (principal); F10.230 Alcohol dependence with withdrawal, uncomplicated; F14.20 Cocaine dependence, uncomplicated; F17.213 Nicotine dependence, cigarettes, with withdrawal; F39 Unspecified mood [affective] disorder; F19.282 Other psychoactive substance dependence with psychoactive substance-induced sleep disorder; J45.20 Mild intermittent asthma, uncomplicated; B19.20 Unspecified viral hepatitis C without hepatic coma; R07.89 Other chest pain; R00.1 Bradycardia, unspecified; Z86.19 Personal history of other infectious and parasitic diseases; Z59.0 Homelessness
CPT/HCPCS: 36415; 80053; 81003; 85025; 86593; 93005; 93010; J0735